=== PATIENT | female | born 1990 | race Caucasian/White ===

== ENCOUNTER 2017-07-20 13:27 | Emergency (ER) | payer MEDICAID, SELFPAY ==
[2017-07-20 13:28] VITALS: BP 136/70; PULSE 101; RESP 16; TEMP 37.2; O2SAT 99; BMI 40.7
--- NOTE | 2017-07-20 14:20 | US_ITS ---
STUDY: FIRST TRIMESTER OBSTETRICAL ULTRASOUND REASON FOR EXAM: Female, 26 years old. . Bleeding. LMP: 05/10/2017 TECHNIQUE: Transvaginal PRIOR ULTRASOUND: None. FINDINGS: There is visualization of a single gestational sac in a normal intrauterine position. There is a visualized yolk sac. There is visualization of a live embryo. The crown-rump length (CRL) measures 2.6, indicating an estimated gestational age (EGA) of 9 weeks, 3 days. There is demonstrated cardiac activity with a heart rate of 170 bpm. There is a 2.3 x 1.9 x 0.7 cm subchorionic hematoma. The uterus measures 11.1 x 6.9 x 5.4. There is no demonstrated uterine fibroid. The cervix is closed. The right ovary measures 2.9 x 2.3 x 1.6. There is no right ovarian cyst. There is no visualized right adnexal mass or complex lesion. The left ovary measures 3.0 x 2.9 x 2.3. There is a 2.0 x 1.9 cm cyst in the left ovary. There is no visualized left adnexal mass or complex lesion. There is no fluid in the cul de sac. US/Transvaginal w/Preg US IMPRESSION: Single live intrauterine gestation at approximately 9 weeks and 3 days. 2.3 x 1.9 x 0.7 cm subchorionic hematoma. Electronically Signed: Vineet Flores, at 16:11 EST Tel , Service support ,
[2017-07-20 14:45] LABS: Color, Urine Yellow (Yellow); Glucose, Dipstick Normal (Normal); Ketone-Dipstick Negative (Negative); Leukocyte Esterase-Dipstick 100 /ul (Negative); Nitrite-Dipstick Negative (Negative); Occult Blood-Urine 25 /ul (Negative); Protein-Dipstick Negative (Negative); Urine Bilirubin Dipstick Negative (Negative); Urine Clarity Clear (Clear); Urine Urobilinogen Normal (Normal)
[2017-07-20 14:54] LABS: Red Blood Cells-Urine 0-5 SEEN /hpf (0-5); Squamous Epithelial Cells - UA 0-5 SEEN /hpf (5-10); White Blood Cells 0-5 SEEN /hpf (0-5)
[2017-07-20 14:55] LABS: Bacteria RARE /hpf (None Seen); Mucous, Urine RARE /hpf (<or=2+)
[2017-07-20 16:11] VITALS: BP 98/69; PULSE 96; O2SAT 98
--- NOTE | 2017-07-20 16:24 | ED.DCSUM_ITS ---
- ER Visit Summary Date of Service: 07/20/17 Chief Complaint: History of Present Illness: The patient is a 26 F who is approximately 9 weeks by dates. This is her first . Today she developed some mild intermittent pelvic cramping. She has had a vaginal bleeding which she describes as spotting. No discharge. No dysuria frequency urgency or hematuria. No fevers. He has not yet had an obstetrics appointment. Physical Examination: Afebrile vitals are unremarkable Heart regular rate and rhythm Lungs are clear Abdomen soft nontender nondistended Alert and oriented Test Results: None dictated hCG 89,000. ABO Rh blood type is B+. Urinalysis shows rare bacteria and was sent for culture. Pelvic ultrasound shows a single live intrauterine at 9 weeks and 3 days. There is a subchorionic hematoma. Emergency Department Course and Treatment: Patient was advised of findings. Her blood type is Rh+. 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 She understands to return for new or worsening symptoms. She was discharged. Treatment Plan: [] Disposition: Discharge Impression: Intrauterine Subchorionic hematoma This note was generated with [employer] dictation software. It may contain incorrect words, spelling, and punctuation that were not noted in review of the chart prior to signing ED Disposition - Plan for ED Patient: Chief Complaint: Vag Bld, Preg Referrals: Roger Porter DO [Primary Care Provider] -
--- NOTE | 2017-07-20 16:27 | DCINST.ED_ITS ---
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
[2017-07-20 16:32] VITALS: RESP 18
== END 2017-07-20 16:33 | disposition home or self-care (01) ==
PROVIDERS: Emergency Provider Emergency Medicine; Family Provider Family Medicine; PCP Family Medicine
DX: O46.8X1 Other antepartum hemorrhage, first trimester (principal); Z3A.09 9 weeks gestation of pregnancy
CPT/HCPCS: 76817; 81001; 84702; 86900; 99282

== ENCOUNTER → 2018-06-21 14:47 | Outpatient (CLI) | payer OTHER, MEDICAID, SELFPAY ==
--- NOTE | 2018-06-21 14:50 | RAD_ITS ---
STUDY: X-RAY - ABDOMEN/PELVIS REASON FOR EXAM: Female, 27 years old. Kidney calculus. TECHNIQUE: 2 views of the abdomen and pelvis COMPARISON: CT dated 06/15/2014. FINDINGS: There are radiodensities in the left upper quadrant which correspond to surgical clips in the pancreas on the CT dated 06/15/2014. There are no urinary calculi identified. There is no bowel obstruction. There is air and stool to the level of the rectum. The visualized osseous structures are within normal limits. RAD/Abdomen Single View IMPRESSION: No bowel obstruction. No urinary calculi identified. If indicated, further evaluation with CT can be performed. Electronically Signed: Vineet Flores, at 16:15 EST Tel , Service support ,
--- OUTSIDE RECORDS SUMMARY | 2018-08-23 20:57 | XMS RPT_ITS ---
:1990 Author Organization OHIP Support Name Relationship Address Phone HO Unavailable [address] + [place] [address] NINO MORRIS Unavailable [address] + [place] [address] SAGRARIO RODRIGUEZ Unavailable [address] + [address] [place] [address] [facility] Unavailable [address] + [place] [address] NINO MORRIS Unavailable [address] + [place] [address] SAGRARIO RODRIGUEZ Unavailable [address] + [address] [place] [address] WENDY RODRIGUEZ Unavailable [address] + [place] [address] NINO MORRIS Unavailable [address] + [place] [address] [facility] Unavailable [address] + [place] [address] Care Team Providers Name Role Phone DISHA LAGOS DO Attending Unavailable MARILYNN HULL CNM Attending Unavailable DR. SHAHID TORRSE DO Attending Unavailable TERE WEST MD Consulting Unavailable DR. SHAHID TORRES DO Admitting Unavailable MARILYNN HULL CNM Attending Unavailable TERE WEST MD Consulting Unavailable MARILYNN HULL CNM Admitting Unavailable MARILYNN HULL CNM Attending Unavailable MARILYNN HULL CNM Admitting Unavailable Adeline Pressley Attending Unavailable Adeline Pressley Referring Unavailable Roger Porter Primary Care Unavailable Adeline Pressley Attending Unavailable Adeline Pressley Referring Unavailable Primay Care Physicia, No Primary Care Unavailable Charlotte, Roger Primary Care Unavailable Humza Chris Attending Unavailable PROBLEMS PROBLEMS DATE TYPE CONDITION / CODE ATTENDING STATUS SOURCE 06/24/2018 Unknown N20.0 - Calculus Adeline Pressley Active [facility] N20.0(ICD-10) Hospital Repository 07/29/2017 Unknown O46.8X1 - Other Humza Chris Active [facility] antepartum Community hemorrhage, first Hospital trimester / Repository O46.8X1(ICD-10) PROCEDURES PROCEDURES No Procedure Records FoundRESULTS RESULTS OPERATIVE REPORT Observed: 06/24/2018 Status: F Source: [place] 10:16 AM [facility] REPOSITORY [facility] Medical Records Department [address] [place] [address] Operative Report 06/24/18 1010 MR#: [id number] Acct: [id number] Name: LARISSA PUTNAM Rep #: [id number] : 1990 27 From: Adeline Pressley MD PCP: Care Physician, No Primary Status: [facility] Location: [place] [address] Problem List (1) Renal calculus, right Status: Acute (2) Pelvic pain Status: Acute Report of Operation Date of Procedure: 06/24/18 Pre-Operative Diagnosis: right renal calculus, pelvic pain Post-Operative Diagnosis: same Surgery/Procedure Performed:: pelvic exam under anesthesia, cystoscopy, right renal extracorporeal shockwave lithotripsy Description of Surgical Findings:: cystoscopy no mass, erythema, ulceration. pelvic exam with decreased support and rectocele, open introitus. stone well fragmented after 2000 shocks. evs attendant: Adeline Pressley Type of Anesthesia:: General Estimated Blood Loss (mL): 2cc Description of Procedure: The patient is a 27-year-old female who was determined to have bilateral renal calculi during a recent . She now presents for definitive treatment of her remaining right renal calculus and further evaluation with pelvic exam and cystoscopy for her pelvic pain. All risks benefits and alternatives were discussed preoperatively and she agreed to proceed. She was taken to the operating room and placed on operating room table. Anesthesia monitored the head, neck, airway, IV access, vital signs throughout the case. Once anesthesia was superbly administered patient was placed into dorsal lithotomy position was prepped and draped in usual sterile fashion. A pelvic examination revealed significant laxity of the posterior pelvic floor with a rectocele present. The introitus is significantly open. A 21 Danish 70 degree scope was inserted through the urethra under direct bili visualization into the urinary bladder. The area of the trigone was anatomically appropriate. The entirety of the bladder mucosa and urethra were visualized and found to be without evidence of mass, erythema, ulceration or foreign body. At this time the scope was removed. The patient was placed into supine position. The stone on her right side was easily identified. It was aligned with a lithotripter and was completely fragmented and a total of 2000 shocks. The patient was then awakened and taken to the recovery room in good condition. There were no immediate complications. - Complications none - Admit VTE Documentation VTE Present on Admission: Yes VTE Mechan Device Prophylaxis: SCD's VTE Pharm Prophylaxis ordered?: No Reason prophylaxis not ordered:: Treatment Not Indicated 06/24/18 1016 <Electronically signed by Adeline Pressley MD> Date Adeline Pressley MD CC: No Primary Care Physician; Adeline Pressley MD Signed DISCHARGE INSTRUCTION Observed: 06/24/2018 Status: F Source: [place] 8:25 AM [facility] Medical Records Department [address] [place] [id number] Instructions for Home/Discharge Instructions 06/24/18 0824 MR#: [id number] Acct: [id number] Name: LARISSA PUTNAM Rep #: [id number] : 1990 27 From: Adeline Pressley MD PCP: Care Physician, No Primary Status: [facility] Dis[place] Diet: No Restrictions Discharge Activity: May not drive while taking narcotic pain medications. Call your doctor if you observe: Fever of 101 or Higher, Inability to urinate, Shortness of breath, Chest pain, Calf discomfort, Uncontrolled pain Allergies/Adverse Reactions: Allergies No Known Allergies Allergy (Verified 06/21/18 16:09) Medications to take at Discharge No Known/Unobtainable [No Known Home Medications] 04/04/13 Primary Care Physician: Care Physician,No Primary [Primary Care Provider] - Test Results: Test results from this visit will be discussed in further detail at your follow-up appointment, if applicable. Please Follow Up With: Adeline Pressley MD When: 3 weeks with KUB Proposed Discharge Date: 06/24/18 06/24/18824 <Electronically signed by Adeline Pressley MD> Date Adeline Pressley MD CC: No Primary Care Physician Signed ,URINE Collected: 06/24/2018 Status: F Source: [place] 8:00 AM [facility] REPOSITORY Order Comment: Reason for Laboratory Test preop TYPE CODE TESTS RESULT OUT OF REFERENCE UNITS RANGE LAB L400.8000 Negative Normal HCGUQUAL Negative Result Comment: Very dilute urine specimens, as indicated by a low specific gravity, may not contain high school admissions representative levels of hCG. If is still suspected, a first morning urine specimen should be collected 48 hours later and tested. Performed By: #### L400.7600 #### [facility] [address] [place], [address] ABDOMEN SINGLE VIEW Observed: 06/21/2018 Status: F Source: [place] 2:50 PM [facility] REPOSITORY [facility] Imaging Services [address] [place] [address] Abdomen Single View MR#: [id number] Acct: [id number] Name: LARISSA PUTNAM Rep #: [id number] : 1990 F 27 From: Vineet Flores MD PCP: Roger Porter DO Status: REG CLI Study: Abdomen Single View Date of Exam: 06/21/18 Exam# [id number] Ordering Dr: Adeline Pressley MD STUDY: X-RAY - ABDOMEN/PELVIS REASON FOR EXAM: Female, 27 years old. Kidney calculus. TECHNIQUE: 2 views of the abdomen and pelvis COMPARISON: CT dated 06/15/2014. FINDINGS: There are radiodensities in the left upper quadrant which correspond to surgical clips in the pancreas on the CT dated 06/15/2014. There are no urinary calculi identified. There is no bowel obstruction. There is air and stool to the level of the rectum. The visualized osseous structures are within normal limits. RAD/Abdomen Single View IMPRESSION: No bowel obstruction. No urinary calculi identified. If indicated, further evaluation with CT can be performed. Electronically Signed: Vineet Flores, at 16:15 EST Tel , Service support , CC: Adeline Pressley MD; Roger Porter DO Auto Polisher: Signed CBC Collected: 02/17/2018 Status: F Source: [facility] 5:50 AM [facility] REPOSITORY TYPE CODE TESTS RESULT OUT OF RANGE REFERENCE UNITS LAB WBC(LOINC) 4.60-10.80 10 3/mcL Abnormal Alert WBC 21.50 LAB RBCCT(LOIN 4.20-5.40 10 6/mcL C) Low RBC 4.06 LAB HGB(LOINC) 12.0-16.0 G/dL Low Hgb 11.5 LAB HCT(LOINC) 37.0-47.0 % Low Hct 33.4 LAB MCV(LOINC) 80.0-94.0 fL MCV 82.3 LAB MCH(LOINC) 27.0-31.2 pg MCH 28.2 LAB MCHC(LOINC 33.0-37.0 G/dL ) MCHC 34.3 LAB RDW(LOINC) 11.5-14.5 % High RDW 14.6 LAB PLT(LOINC) 130-400 10 3/mcL Platelet 257 LAB MPV(LOINC) 7.4-10.4 fL MPV 9.3 Performed By: #### CBC, DIFF, MORPH #### [address] [address] .MANUAL DIFF Collected: 02/17/2018 Status: F Source: [facility] 5:50 AM [facility] REPOSITORY TYPE CODE TESTS RESULT OUT OF REFERENCE UNITS RANGE LAB NEUM(LOINC 37.0-80.0 % ) Neutrophil %, 75.0 Manual LAB LYMM(LOINC 10.0-50.0 % ) Lymphocyte %, 12.0 Manual LAB MONM(LOINC 1.7-13.0 % ) Monocyte %, Manual 2.0 LAB EOM(LOINC) 0.0-7.0 % Eosinophil %, 0.0 Manual LAB BASM(LOINC 0.0-2.5 % ) Basophil %, Manual 0.0 LAB BAND(LOINC 0.0-5.0 % ) Bands High 11.0 LAB ANEUM(LOIN 2.85-6.16 10 3/mcL C) High Neutrophil, Abs 18.50 Manual LAB ABLYMM(STEVE 0.77-3.85 10 3/mcL NC) Lymphocyte, Abs 2.60 Manual LAB AMONM(LOIN 0.15-1.00 10 3/mcL C) Monocyte, Abs 0.40 Manual LAB AEOSM(LOIN 0.00-0.40 10 3/mcL C) Eosinophil, Abs 0.00 Manual LAB ABASM(LOIN 0.00-0.19 10 3/mcL C) Basophil, Abs 0.00 Manual Performed By: #### CBC, DIFF, MORPH #### [address] [address] .MORPH Collected: 02/17/2018 Status: F Source: [facility] 5:50 AM [facility] REPOSITORY TYPE CODE TESTS RESULT OUT OF REFERENCE UNITS RANGE LAB PLTE(LOINC ) Platelet Estimate Normal LAB ANIS(LOINC ) Anisocytosis Slight Performed By: #### CBC, DIFF, MORPH #### [address] [address] CBC Collected: 02/15/2018 Status: F Source: [facility] 8:15 PM [facility] REPOSITORY TYPE CODE TESTS RESULT OUT OF REFERENCE UNITS RANGE LAB WBC(LOINC) 4.60-10.80 10 3/mcL High WBC 11.90 LAB RBCCT(LOINC 4.20-5.40 10 6/mcL ) Low RBC 4.09 LAB HGB(LOINC) 12.0-16.0 G/dL Low Hgb 11.7 LAB HCT(LOINC) 37.0-47.0 % Low Hct 33.6 LAB MCV(LOINC) 80.0-94.0 fL MCV 82.0 LAB MCH(LOINC) 27.0-31.2 pg MCH 28.5 LAB MCHC(LOINC) 33.0-37.0 G/dL MCHC 34.7 LAB RDW(LOINC) 11.5-14.5 % High RDW 14.7 LAB PLT(LOINC) 130-400 10 3/mcL Platelet 242 LAB MPV(LOINC) 7.4-10.4 fL MPV 9.2 Performed By: #### CBC, ADIFF, ANEU, ABOG, ANSG #### [address] [address] .AUTO DIFF Collected: 02/15/2018 Status: F Source: [facility] 8:15 [facility] REPOSITORY TYPE CODE TESTS RESULT OUT OF REFERENCE UNITS RANGE LAB CONSTANTINE(LOINC) 37.0-80.0 % Neutrophil % 73.6 LAB LYM(LOINC) 10.0-50.0 % Lymphocyte % 18.9 LAB MON(LOINC) 1.7-13.0 % Monocyte % 6.1 LAB EO(LOINC) 0.0-7.0 % Eosinophil % 0.9 LAB BAS(LOINC) 0.0-2.5 % Basophil % 0.5 LAB ABLYM(LOIN 0.77-3.85 10 3/mcL C) Lymphocyte, 2.30 Absolute LAB JEN(LOINC 0.15-1.00 10 3/mcL ) Monocyte, 0.70 Absolute LAB AEOS(LOINC 0.00-0.40 10 3/mcL ) Eosinophil, 0.10 Absolute LAB ABAS(LOINC 0.00-0.19 10 3/mcL ) Basophil, 0.10 Absolute Performed By: #### CBC, ADIFF, ANEU, ABOG, ANSG #### [address] [address] .NEUABS Collected: 02/15/2018 Status: F Source: [facility] 8:15 PM [facility] REPOSITORY TYPE CODE TESTS RESULT OUT OF REFERENCE UNITS RANGE LAB ANEU(LOINC) 2.85-6.16 10 3/mcL High Neutrophil, 8.70 Absolute Performed By: #### CBC, ADIFF, ANEU, ABOG, ANSG #### [address] [address] GEL ABO Collected: 02/15/2018 Status: F Source: [facility] 8:15 PM [facility] REPOSITORY TYPE CODE TESTS RESULT OUT OF RANGE REFERENCE UNITS LAB ABORH(LOINC ) Unknown ABO/Rh B POS Interp Performed By: #### CBC, ADIFF, ANEU, ABOG, ANSG #### [address] [address] GEL ABS Collected: 02/15/2018 Status: F Source: [facility] 8:15 PM [facility] REPOSITORY TYPE CODE TESTS RESULT OUT OF REFERENCE UNITS RANGE LAB ANSG(LOINC ) Antibody Negative ABSC Screen Gel Performed By: #### CBC, ADIFF, ANEU, ABOG, ANSG #### [address] [address] ZCALC Collected: 01/17/2018 Status: F Source: [facility] 6:25 PM [facility] REPOSITORY TYPE CODE TESTS RESULT OUT OF REFERENCE UNITS RANGE LAB UCONS(LOIN C) Calculi constituents See Below Result Comment: The calculus has been analyzed and found to contain the following substances: CALCIUM OXALATE MAGNESIUM PRESENT Performed By: #### ZCALC #### [place] [address] FINAL SURGICAL Observed: 01/17/2018 Status: F Source: [facility] PATHOLOGY REPORT 6:09 PM [facility] REPOSITORY . Pathology Reports Accession: Collected Date/Time: Received Date/Time: Pathologist: [id number] 01/17/2018 18:09 EDT 01/18/2018 14:23 EDT MD DESI MOSQUEDA Final Surgical Pathology Report DIAGNOSIS: _URINARY CALCULUS. CALCULUS IDENTIFIED (GROSS ONLY). COMMENT: [facility]# [id number] CLINICAL INFORMATION: Procedure: LEFT URETEROSCOPY WITH BASKET EXTRACTION OF KIDNEY STONE Preoperative diagnosis: KIDNEY STONE Postoperative diagnosis: SAME SPECIMEN: A CALCULI - LEFT KIDNEY STONE GROSS DESCRIPTION: Received in saline labeled left kidney stone is a 0.4 cm hard yellow calculus which is entirely submitted for chemical analysis. Dictated by Omaira CHAVEZ ([facility]) MICROSCOPIC DESCRIPTION: NONE Electronically Signed by Pathology Report verified by [facility] Electronically signed by DESI MOSQUEDA MD Sign out Date: 01/19/2018 09:07 Performing Lab: [facility], [address] [place] [address] Performed By: #### SPFR #### [place] [address] UA Collected: 01/17/2018 Status: F Source: [facility] 10:48 AM [facility] REPOSITORY TYPE CODE TESTS RESULT OUT OF RANGE REFERENCE UNITS LAB SPCUA(STEVE NC) UA Specimen Type Clean Catch LAB CLRUA(STEVE NC) UA Color Yellow LAB APPUA(STEVE Clear NC) UA Appear Unknown Cloudy LAB SGUA(LOIN C) UA Spec Unknown Grav 1.005 LAB GLUA(LOIN Negative mg/dL C) UA Glucose Negative LAB BILUA(STEVE Negative NC) UA Bili Negative LAB KETUA(STEVE Negative mg/dL NC) UA Ketones Unknown 80 LAB BLDUA(STEVE Negative NC) UA Blood Unknown Trace-Intact LAB PHUA(LOIN C) UA pH 6.5 LAB PROUA(STEVE Negative mg/dL NC) UA Protein Negative LAB UROUA(STEVE E.U./dL NC) UA Urobilinogen 0.2 LAB NITUA(STEVE Negative NC) UA Nitrite Negative LAB LEUUA(STEVE Negative NC) UA Leuk Est Unknown Moderate Performed By: #### UA, UAMICAO #### [place] [address] .URINALYSIS MICROSCOPIC Collected: 01/17/2018 Status: F Source: [place] ([facility]) 10:48 AM [facility] REPOSITORY TYPE CODE TESTS RESULT OUT OF RANGE REFERENCE UNITS LAB WBCUA(LOIN None Seen /hpf C) Unknown UA WBC 0-5 LAB RBCUA(LOIN None Seen /hpf C) Unknown UA RBC 5-10 LAB EPIUA(LOIN None Seen /hpf C) Unknown UA Squam Epithelial 5-10 LAB BACUA(LOIN /hpf C) Unknown UA Bacteria 4+ Performed By: #### UA, UAMICAO #### [place] [id number] US RENAL Observed: 01/17/2018 Status: F Source: [facility] 10:06 AM [facility] REPOS[facility] ORIGINAL US RENAL CLINICAL INDICATION: continued pain; evaluate stone size. 3rd trimester. COMPARISON: CT abdomen/pelvis 01/15/2018. Renal ultrasound 01/14/2018 and 01/11/2018. FINDINGS: KIDNEYS: RIGHT: 12.2 x 6.1 x 6.5 cm Cortext: Unremarkable 1 cm calculus. No hydronephrosis, perirenal fluid, or discrete cortical mass. LEFT: 11.3 x 6.9 x 5.8 cm Cortext: Unremarkable 0.7 cm calculus. No hydronephrosis, perirenal fluid, or discrete cortical mass. Urinary bladder is empty. IMPRESSION: Bilateral nephrolithiasis. Hydronephrosis resolved. I have personally reviewed the images of this examination and agree with the resident's findings and interpretation. Interpreted By: Estella Plunkett MD Preliminary Report By: Yanni Shah DO Electronically Signed By: Estella Plunkett MD Dictated Date: 01/17/2018 10:13:46 AM Prelim Date: 01/17/2018 10:50:09 AM Sign Date: 01/17/2018 11:20:[address] ABDOMEN/PELVIS W/O Observed: 01/15/2018 Status: F Source: [facility] 10:39 AM [facility] REPOSITORY ORIGINAL CT abdomen and pelvis without contrast, stone protocol CLINICAL STATEMENT: renal lithiasis, uncontrollable pain, left-sided pain COMPARISON: 01/07/2013 and other prior This exam was performed according to our departmental dose- optimization program which includes automated exposure control, adjustment of the mA and/or kVp according to patient size and/or use of iterati ve reconstruction technique where applicable. Findings: A 6 mm stone is seen in the inferior pole of the RIGHT kidney. There is a tiny 1 to 2 mm punctate stone in the inferior pole of the LEFT kidney. There is a 5 mm calcification in the LEFT side pelvis in the region of the LEFT UVJ, which was not seen in the prior CT study, likely representing a urinary stone. Mild hydroureteronephrosis is seen. Mild dilatation of the RIGHT upper urinary tract is also noted, but this could be due to the gravid uterus. Within the limits of a noncontrast CT, other viscera show no gross acute abnormalities. No free fluid collection is seen. The appendix is normal. There is a gravid uterus with the fetus in cephalic presentation. IMPRESSION: Probable 5 mm LEFT UVJ stone with mild hydroureteronephrosis, as described above. Nonobstructing bilateral nephrolithiasis. Interpreted By: Martin Ronquillo DO Preliminary Report By: Martin Ronquillo DO Electronically Signed By: Martin Ronquillo DO Dictated Date: 01/15/2018 10:52:26 AM Prelim Date: 01/15/2018 10:52:26 AM Sign Date: 01/15/2018 11:04:04 AM ABO/RH RETYPE GEL Collected: 01/14/2018 Status: F Source: [employer] 2:07 PM [facility] REPOSITORY Order Comment: Ordered by Discern TYPE CODE TESTS RESULT OUT OF RANGE REFERENCE UNITS LAB [id number](LOINC) Unknown ABO/Rh B POS Retype Gel Performed By: #### ABORG #### [address] [address] CBC Collected: 01/14/2018 Status: F Source: [facility] 11:54 AM [facility] REPOSITORY TYPE CODE TESTS RESULT OUT OF REFERENCE UNITS RANGE LAB WBC(LOINC) 4.60-10.80 10 3/mcL WBC 10.20 LAB RBCCT(LOINC 4.20-5.40 10 6/mcL ) Low RBC 3.92 LAB HGB(LOINC) 12.0-16.0 G/dL Low Hgb 11.4 LAB HCT(LOINC) 37.0-47.0 % Low Hct 32.9 LAB MCV(LOINC) 80.0-94.0 fL MCV 83.8 LAB MCH(LOINC) 27.0-31.2 pg MCH 29.1 LAB MCHC(LOINC) 33.0-37.0 G/dL MCHC 34.7 LAB RDW(LOINC) 11.5-14.5 % RDW 13.3 LAB PLT(LOINC) 130-400 10 3/mcL Platelet 236 LAB MPV(LOINC) 7.4-10.4 fL MPV 9.0 Performed By: #### CBC, ADIFF, ANEU, ABOG, ANSG #### [address] [address] .AUTO DIFF Collected: 01/14/2018 Status: F Source: [facility] 11:54 AM [facility] REPOSITORY TYPE CODE TESTS RESULT OUT OF REFERENCE UNITS RANGE LAB CONSTANTINE(LOINC) 37.0-80.0 % Neutrophil % 75.8 LAB LYM(LOINC) 10.0-50.0 % Lymphocyte % 16.0 LAB MON(LOINC) 1.7-13.0 % Monocyte % 6.3 LAB EO(LOINC) 0.0-7.0 % Eosinophil % 1.0 LAB BAS(LOINC) 0.0-2.5 % Basophil % 0.9 LAB ABLYM(LOIN 0.77-3.85 10 3/mcL C) Lymphocyte, 1.60 Absolute LAB JEN(LOINC 0.15-1.00 10 3/mcL ) Monocyte, 0.60 Absolute LAB AEOS(LOINC 0.00-0.40 10 3/mcL ) Eosinophil, 0.10 Absolute LAB ABAS(LOINC 0.00-0.19 10 3/mcL ) Basophil, 0.10 Absolute Performed By: #### CBC, ADIFF, ANEU, ABOG, ANSG #### [address] [address] .NEUABS Collected: 01/14/2018 Status: F Source: [facility] 11:54 AM [facility] REPOSITORY TYPE CODE TESTS RESULT OUT OF REFERENCE UNITS RANGE LAB ANEU(LOINC) 2.85-6.16 10 3/mcL High Neutrophil, 7.70 Absolute Performed By: #### CBC, ADIFF, ANEU, ABOG, ANSG #### [address] [address] GEL ABO Collected: 01/14/2018 Status: F Source: [facility] 11:54 AM [facility] REPOSITORY TYPE CODE TESTS RESULT OUT OF RANGE REFERENCE UNITS LAB ABORH(LOINC ) Unknown ABO/Rh B POS Interp Performed By: #### CBC, ADIFF, ANEU, ABOG, ANSG #### [address] [address] GEL ABS Collected: 01/14/2018 Status: F Source: [facility] 11:54 AM [facility] REPOSITORY TYPE CODE TESTS RESULT OUT OF REFERENCE UNITS RANGE LAB ANSG(LOINC ) Antibody Negative ABSC Screen Gel Performed By: #### CBC, ADIFF, ANEU, ABOG, ANSG #### [facility] [address] [place], [place] [address] US RENAL Observed: 01/14/2018 Status: F Source: [facility] 10:32 AM [facility] REPOSITORY ORIGINAL US RENAL CLINICAL INDICATION: kidney stone. 3rd trimester . COMPARISON: 01/11/2018 demonstrated bilateral nephrolithiasis with mild LEFT pelvocaliectasis. FINDINGS: KIDNEYS: RIGHT: 11.9 x 5.7 x 4.9 cm Cortext: Unremarkable RIGHT renal calculus measuring approximately 1 cm is unchanged. No hydronephrosis or discrete cortical mass. LEFT: 11.9 x 5.7 x 4.7 cm Cortext: Unremarkable Mild pelvocaliectasis is stable to mildly improved. No shadowing stone, or discrete cortical mass. Urinary bladder is unremarkable. Partially visualized is the live gestation. IMPRESSION: 1. RIGHT nephrolithiasis. LEFT renal calculus no longer visualized. 2. Stable to minimally improved, mild LEFT pelvocaliectasis. I have personally reviewed the images of this examination and agree with the resident's findings and interpretation. Interpreted By: Warner Bartlett MD Preliminary Report By: Yanni Shah DO Electronically Signed By: Warner Bartlett MD Dictated Date: 01/14/2018 11:36:37 AM Prelim Date: 01/14/2018 11:48:40 AM Sign Date: 01/14/2018 11:49:17 AM BMP Collected: 01/12/2018 Status: F Source: [employer] 7:44 AM [facility] REPOSITORY TYPE CODE TESTS RESULT OUT OF REFERENCE UNITS RANGE LAB GLU(LOINC) 70-105 mg/dL Glucose High Level 110 LAB NA(LOINC) 136-145 mmol/L Sodium Level 136 LAB K(LOINC) 3.5-5.1 mmol/L Potassium Level 4.1 LAB CL(LOINC) 98-107 mmol/L Chloride 101 LAB CO2(LOINC) 22-29 mmol/L Low CO2 21 LAB EBAL(LOINC mEq/L ) Electrolyte Balance 14.0 LAB BUN(LOINC) 7-18 mg/dL BUN 9 LAB CRE(LOINC) 0.55-1.02 mg/dL Creatinine Lvl (s) 0.73 LAB BC(LOINC) 7-27 ratio BUN/Creatinine 12 Ratio LAB CA(LOINC) 8.4-10.2 mg/dL Calcium Lvl 9.0 Performed By: #### BMP, GFR #### [address] [address] .GFR Collected: 01/12/2018 Status: F Source: [employer] 7:44 AM [facility] REPOSIT[facility] TYPE CODE TESTS RESULT OUT OF REFERENCE UNITS RANGE LAB GFRAA(LOINC ml/min/1.73 ) sqm GFR 116 [place] Result Comment: GFR Population mean for , Non- Americans Ages 20-29 = 116 mL/min/1.73 sq.m. Ages 30-39 = 107 mL/min/1.73 sq.m. Ages 40-49 = 99 mL/min/1.73 sq.m. Ages 50-59 = 93 mL/min/1.73 sq.m. Ages 60-69 = 85 mL/min/1.73 sq.m. Ages 70+ = 75 mL/min/1.73 sq.m. Chronic Kidney Disease: Less than 60 mL/min/1.73 square meters End Stage Renal Disease: Less than 15 mL/min/1.73 square meters LAB GFRNO(LOINC) ml/min/1.73sqm GFR Non- 96 Result Comment: GFR Population mean for , Non- Americans Ages 20-29 = 116 mL/min/1.73 sq.m. Ages 30-39 = 107 mL/min/1.73 sq.m. Ages 40-49 = 99 mL/min/1.73 sq.m. Ages 50-59 = 93 mL/min/1.73 sq.m. Ages 60-69 = 85 mL/min/1.73 sq.m. Ages 70+ = 75 mL/min/1.73 sq.m. Chronic Kidney Disease: Less than 60 mL/min/1.73 square meters End Stage Renal Disease: Less than 15 mL/min/1.73 square meters Performed By: #### BMP, GFR #### [place] [address] US RENAL Observed: 01/11/2018 Status: F Source: [employer] 5:57 PM [facility] REPOSIT[facility] ORIGINAL US RENAL (US RETROPERITONEUM COMPLETE) CLINICAL STATEMENT: LEFT flank pain. The patient is 35 weeks . COMPARISON: CT abdomen and pelvis 01/07/2013 FINDINGS: The RIGHT and LEFT kidneys measure 12.6 x 5.4 x 4.6 cm and 13.2 x 6.1 x 6.0 cm, respectively. Renal cortical echogenicity and thickness is within normal limits, there is no focal renal mass. Linear echo genic foci are seen within both kidneys with associated posterior acoustic shadowing. These measure up to 1 cm on the LEFT and 0.9 cm on the RIGHT. There is mild LEFT pelvocaliectasis. No perinephric fl uid collection. On the comparison CT images the kidneys appeared normal and there were no calculi previously. The bladder is empty and therefore not adequately assessed. Per technologist notes, heart rate was within normal limits at 150 bpm. IMPRESSION: Bilateral nephrolithiasis with mild LEFT pelvocaliectasis. The bladder is not assessed given underdistention. heart rate within normal limits at 150 bpm. I have personally reviewed the images of this examination and agree with the resident's findings and interpretation Interpreted By: Alfonso Price MD Preliminary Report By: Bairon Stanley MD Electronically Signed By: Alfonso Price MD Dictated Date: 01/11/2018 6:08:46 PM Prelim Date: 01/11/2018 6:12:20 PM Sign Date: 01/11/2018 6:34:29 PM UA Collected: 01/10/2018 Status: F Source: [facility] 11:09 AM [facility] REPOSITORY TYPE CODE TESTS RESULT OUT OF RANGE REFERENCE UNITS LAB SPCUA(STEVE NC) UA Specimen Type Clean Catch LAB CLRUA(STEVE NC) UA Color Yellow LAB APPUA(STEVE Clear NC) UA Appear Unknown Slightly Cloudy LAB SGUA(LOIN C) UA Spec Grav 1.025 LAB GLUA(LOIN Negative mg/dL C) UA Glucose Negative LAB BILUA(STEVE Negative NC) UA Bili Negative LAB KETUA(STEVE Negative mg/dL NC) UA Ketones Negative LAB BLDUA(STEVE Negative NC) UA Blood Unknown Large LAB PHUA(LOIN C) UA pH 6.0 LAB PROUA(STEVE Negative mg/dL NC) UA Protein Negative LAB UROUA(STEVE E.U./dL NC) UA Urobilinogen 0.2 LAB NITUA(STEVE Negative NC) UA Nitrite Negative LAB LEUUA(STEVE Negative NC) UA Leuk Est Unknown Trace Performed By: #### UA, UAMICAO #### [facility] [address] [place], [place] [address] .URINALYSIS MICROSCOPIC Collected: 01/10/2018 Status: F Source: [place]) 11:09 AM [facility] REPOSITORY TYPE CODE TESTS RESULT OUT OF RANGE REFERENCE UNITS LAB WBCUA(LOIN None Seen /hpf C) Unknown UA WBC 0-5 LAB RBCUA(LOIN None Seen /hpf C) Unknown UA RBC LOADED LAB EPIUA(LOIN None Seen /hpf C) Unknown UA Squam Epithelial LOADED LAB BACUA(LOIN /hpf C) Unknown UA Bacteria 3+ Performed By: #### UA, UAMICAO #### [facility] [address] [place], [place] [address] DISCHARGE INSTRUCTION Observed: 07/20/2017 Status: F Source: [place] 4:27 PM [facility] REPOSITORY [facility] Medical Records Department [address] [place] [address] Discharge Instruction 07/20/17 1625 MR#: [id number] Acct: [id number] Name: LARISSA PUTNAM Rep #: [id number] : 1990 26 From: Humza Chris MD PCP: Roger Porter DO Status: REG ER ED Disposition - Plan for ED Patient: Chief Complaint: Vag Bld, Preg Instructions: ED Preg Established Normal Sxs, ED Miscarriage Poss Referrals: Roger Porter DO [Primary Care Provider] - Additional Instructions: Follow up with your RUBBING BED OPERATOR ARIANNE. What to do if you have Problems For any increased pain, shortness of breath, bleeding, nausea or vomiting, chest pain, or any unexpected problems, contact your Primary Care Provider. Call [facility] ([phone]) or report to the closest Emergency Room. Call 911 if necessary. 07/20/17 4663 <Electronically signed by Humza Chris MD> Date Humza Chris MD Cosigner Signature (If Indicated): Date CC: Roger Porter DO EMERGENCY DEPARTMENT Observed: 07/20/2017 Status: F Source: [place] SUMMARY 4:24 PM [facility] REPOSITORY [facility] Medical Records Department [address] [place] [address] Emergency Department Summary 07/20/17 1622 MR#: [id number] Acct: [id number] Name: LARISSA PUTNAM Rep #: [id number] : 1990 26 From: Humza Chris MD PCP: Roger Porter DO Status: REG ER - ER Visit Summary Date of Service: 07/20/17 Chief Complaint: History of Present Illness: The patient is a 26 F who is approximately 9 weeks by dates. This is her first . Today she developed some mild intermittent pelvic cramping. She has had a vaginal bleeding which she describes as spotting. No discharge. No dysuria frequency urgency or hematuria. No fevers. He has not yet had an obstetrics appointment. Physical Examination: Afebrile vitals are unremarkable Heart regular rate and rhythm Lungs are clear Abdomen soft nontender nondistended Alert and oriented Test Results: None dictated hCG 89,000. ABO Rh blood type is B+. Urinalysis shows rare bacteria and was sent for culture. Pelvic ultrasound shows a single live intrauterine at 9 weeks and 3 days. There is a subchorionic hematoma. Emergency Department Course and Treatment: Patient was advised of findings. Her blood type is Rh+. 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 She understands to return for new or worsening symptoms. She was discharged. Treatment Plan: [] Disposition: Discharge Impression: Intrauterine Subchorionic hematoma This note was generated with [employer] software. It may contain incorrect words, spelling, and punctuation that were not noted in review of the chart prior to signing ED Disposition - Plan for ED Patient: Chief Complaint: Vag Bld, Preg Referrals: Roger Porter DO [Primary Care Provider] - What to do if you have Problems For any increased pain, shortness of breath, bleeding, nausea or vomiting, chest pain, or any unexpected problems, contact your Primary Care Provider. Call [employer] Registry ([phone]) or report to the closest Emergency Room. Call 911 if necessary. 07/20/17 0134 <Electronically signed by Humza Chris MD> Date Humza Chris MD Cosigner Signature (If Indicated): Date CC: Roger Porter DO URINALYSIS, COMPLETE Collected: 07/20/2017 Status: F Source: [place] 2:25 PM [facility] REPOSITORY Order Comment: Order Date: 07/20/17 How was Urine Obtained? CLEAN CATCH TYPE CODE TESTS RESULT OUT OF RANGE REFERENCE UNITS LAB L400.3000 Yellow COLOR Normal Yellow LAB L400.3050 Clear Normal CLARITY Clear LAB L400.3200 Normal mg/dl Normal GLUCOSE, UR Normal LAB L400.3300 Negative mg/dL Normal BILIRUBIN URINE Negative LAB L400.3400 Negative mg/dl Normal KETONE UR Negative LAB L400.3465 1.002-1.030 Normal SP.GR. DIPSTX 1.010 LAB L400.3550 5.0 - 8.0 pH UR Normal 6.0 LAB L400.3600 Negative mg/dl PROT Normal DIPSTX Negative LAB L400.3700 Normal mg/dl Normal UROBILI Normal LAB L400.3750 Negative Normal NITRITE UR Negative LAB L400.3780 Negative /ul High 25 OCCULT BLOOD-UR LAB L400.3800 Negative /ul High LEUK ESTERASE 100 LAB L400.4050 0-5 /hpf WBC Normal 0-5 SEEN LAB L400.4100 0-5 /hpf Normal RBC-UA 0-5 SEEN LAB L400.4150 5-10 /hpf SQUAM Normal EPI 0-5 SEEN LAB L400.4300 None Seen /hpf Normal BACTERIA RARE LAB L400.4350 <or=2+ /hpf Normal MUCUS, URINE RARE Performed By: #### L400.0001 #### [facility] [address] [place], [address] HCG TITER QUANT., Collected: 07/20/2017 Status: F Source: [place] 2:25 PM [facility] REPOSITORY TYPE CODE TESTS RESULT OUT OF RANGE REFERENCE UNITS LAB L700.8000 <9 non-preg mIU/mL High HCG 52[address] QUANT. Performed By: #### L700.8000 #### [facility] [address] [place], [address] ABO RH BLOOD TYPE, Collected: 07/20/2017 Status: F Source: [place] PATIENT 2:25 PM [facility] REPOSITORY TYPE CODE TESTS RESULT OUT OF RANGE REFERENCE UNITS LAB B10.0800 B Normal BLOOD POSITIVE TYPE GEL Performed By: #### B10.0010 #### [facility] [address] [place], [address] TRANSVAGINAL W/PREG US Observed: 07/20/2017 Status: F Source: [place] 2:21 PM [facility] REPOSITORY [facility] Imaging Services [address] [place] [address] Transvaginal w/Preg US MR#: [id number] Acct: [id number] Name: LARISSA PUTNAM Rep #: [id number] : 1990 F 26 From: Vineet Flores MD PCP: Roger Porter DO Status: REG HUNG Study: Transvaginal w/Preg US Date of Exam: 07/20/17 Exam# [id number] Ordering Dr: Humza Chris MD STUDY: FIRST TRIMESTER OBSTETRICAL ULTRASOUND REASON FOR EXAM: Female, 26 years old. . Bleeding. LMP: 05/10/2017 TECHNIQUE: Transvaginal PRIOR ULTRASOUND: None. FINDINGS: There is visualization of a single gestational sac in a normal intrauterine position. There is a visualized yolk sac. There is visualization of a live embryo. The crown-rump length (CRL) measures 2.6, indicating an estimated gestational age (EGA) of 9 weeks, 3 days. There is demonstrated cardiac activity with a heart rate of 170 bpm. There is a 2.3 x 1.9 x 0.7 cm subchorionic hematoma. The uterus measures 11.1 x 6.9 x 5.4. There is no demonstrated uterine fibroid. The cervix is closed. The right ovary measures 2.9 x 2.3 x 1.6. There is no right ovarian cyst. There is no visualized right adnexal mass or complex lesion. The left ovary measures 3.0 x 2.9 x 2.3. There is a 2.0 x 1.9 cm cyst in the left ovary. There is no visualized left adnexal mass or complex lesion. There is no fluid in the cul de sac. US/Transvaginal w/Preg US IMPRESSION: Single live intrauterine gestation at approximately 9 weeks and 3 days. 2.3 x 1.9 x 0.7 cm subchorionic hematoma. Electronically Signed: Vineet Sandra, at 16:11 EST Tel , Service support , CC: Humza Chris MD; Roger Porter DO Auto Polisher: Signed ALLERGIES ALLERGIES DATE TYPE / CODE NAME / CODE REACTION SEVERITY SOURCE 06/21/2018 Drug No Known Unknown [facility] Allergy/4160 Allergies/F00 Hospital 72037(SNOMED 7793756(RXNOR Repository CT) M) ENCOUNTERS ENCOUNTERS ADMIT/DISCHARGE ACCOUNT NUMBER ADMITTING ENCOUNTER LOCATION SOURCE CLASS 06/24/2018/06/24/19 [id number] Ambulatory [address] ding:SDCRoom Repository : AC20 06/21/2018 [id number] Ambulatory [facility] ding:MTRAD Repository 02/15/2018/02/19/20 [id number] [facility] Inpatient BBuilding:OB [facility] [address] Encounter URoom: Health L. 0215Bed: A [facility] Repository 01/14/2018/01/19/20 [id number] [place] Ambulatory BBuilding:OB [facility] GUSTAFSONM, RICHELE URoom: Health L. 0211Bed: A [facility] Repository 01/11/2018/01/14/20 [id number] SHEROCK DO, Ambulatory BBuilding:OB [facility] [address] URoom: Health E. 0211Bed: A [facility] Repository 01/10/2018/01/11/20 [id number] Ambulatory BBuilding:OB [facility] URoom: Health 0213Bed: A [facility] Repository 10/04/2017/10/05/19 [id number] Ambulatory [place] [facility] ding:RAD Foundation Repository 07/20/2017/07/20/19 [id number] Emergency [place] [facility] ding:ED Repository PAYERS PAYERS ENCOUNTER GUARANTOR PAYER SUBSCRIBER SOURCE 06/24/2018 LARISSA T Primary LARISSA T [place] [id number] Insurance:CIGNAPolicy CLINEDOB: [facility] RDAPT Number: [id number] [id number] Repository [address]Jin: (330) Date:3026-87-01[phone] () [place], [place] [address]HI: 06/24/2018 Secondary NOT GIVENUNK [place] Insurance:SELF PAY [facility] Number: Effective Repository Date:2018-06-21 06/21/2018 LARISSA T Primary LARISSA T [place] [id number] Insurance:CIGNAPolicy CLINEDOB: [facility] RDAPT Number: [id number] [id number] Repository [address]Byk: (330) Date:9811-94-02VV [phone] () [id number], [place] [address]CI: 06/21/2018 Secondary NOT GIVENUNK [place] Insurance:SELF PAY [facility] Number: Effective Repository Date:2018-06-21 02/15/2018 LARISSA T Primary [facility] CLINEDOB: Insurance:CARESOURCE CLINEDOB: Foundation MEDICAIDPolicy [id number] Rep[address] Number: [address] [id number] [address], [place] [address]Nrh: (330) Date:2018-02-1575630Lkg: (HP) [id number] Name:[address] (HP)Tel: (000) [address], [place] 000[address] (WP) [phone]: 01/14/2018 [facility] CLINEDOB: Insurance:CARESOURCE CLINEDOB: [facility] MEDICAIDPolicy [id number] [address] Number: [address] [id number] [address], [place] [address]Qfe: (330) Date:2018-01-1413220Qak: (HP) [id number] [phone] Name:[address] (HP)Tel: (000) [address], [place] 000[address] (WP) [phone]: 01/11/2018 [facility] CLINEDOB: Insurance:CARESOURCE CLINEDOB: [facility] MEDICAIDPolicy [id number] Rep[address] Number: [address] [id number] [address], [place] [address]Vkn: (330) Date:2018-01-1127444Mfl: (HP) [id number] Name:[address] (HP)Tel: (000) [address], [place] 000[address] (WP) [phone]: 01/10/2018 [facility] CLINEDOB: Insurance:CARESOURCE CLINEDOB: [facility] [id number] [address] Number: [address] [facility] [place] [id number] [address], [place] [address]Kau: (330) Date:2018-01-10 527[address]Ecr: (HP) [id number] [phone] Name:[address] (HP)Tel: (000) [address], [place] [address] (WP) [phone]: 10/04/2017 [facility] CLINEDOB: Insurance:CARESOURCE CLINEDOB: [facility] MEDICAIDPolicy [id number] [address] Number: [address] [facility] [place] [id number] [facility], [place] [address]Xgg: (330) Date:2017-09-29 [address]Egb: (HP) [id number] [phone] Name:[address] (HP)Tel: (000) [address], [place] [address] (WP) [address]UO: 07/20/2017 LARISSA Primary LARISSA [place] [id number] Insurance:[employer] CLINEDOB: Community VERENA DRUNIT y Number: [id number] [id number] Repository [address]Von: (330) Date:3095-24-45LT [phone] () [address] [place] [address]MM: 07/20/2017 Secondary NOT GIVENUNK [place] Insurance:SELF PAY [facility] Number: Effective Repository Date:2017-07-20
== END ==
PROVIDERS: Family Provider Family Medicine; PCP Family Medicine; Referring Provider Urology; Visit Provider Urology
DX: N20.0 Calculus of kidney (principal)
CPT/HCPCS: 74018

== ENCOUNTER 2018-06-24 07:32 | Day surgery (SDC) | payer OTHER, MEDICAID, SELFPAY ==
[2018-06-24] VITALS (7 sets, daily range): BP systolic 101–121; BP diastolic 66–76; PULSE 75–98; RESP 16; TEMP 36.3–36.7; O2SAT 99–100; BMI 39.5
[2018-06-24 08:13] LABS: Internal QC Validated? YES +Cl - CLEAR BKGD; Pregnancy, Urine Negative Negative
--- NOTE | 2018-06-24 08:25 | DCINST_ITS ---
Discharge Diet: No Restrictions Discharge Activity: May not drive while taking narcotic pain medications. Call your doctor if you observe: Fever of 101 or Higher, Inability to urinate, Shortness of breath, Chest pain, Calf discomfort, Uncontrolled pain Allergies/Adverse Reactions: Allergies No Known Allergies Allergy (Verified 06/21/18 16:09) Medications to take at Discharge No Known/Unobtainable [No Known Home Medications] 04/04/13 Primary Care Physician: Care Physician,No Primary [Primary Care Provider] - Test Results: Test results from this visit will be discussed in further detail at your follow- up appointment, if applicable. Please Follow Up With: Adeline Pressley MD When: 3 weeks with LUZ MARINA Proposed Discharge Date: 06/24/18
[2018-06-24] MEDS: Cefazolin 2 GM in 0.9% Normal Saline 100 ML IV (09:34)
--- NOTE | 2018-06-24 10:15 | OP.PCM_ITS ---
Problem List (1) Renal calculus, right Status: Acute (2) Pelvic pain Status: Acute Report of Operation Date of Procedure: 06/24/18 Pre-Operative Diagnosis: right renal calculus, pelvic pain Post-Operative Diagnosis: same Surgery/Procedure Performed:: pelvic exam under anesthesia, cystoscopy, right renal extracorporeal shockwave lithotripsy Description of Surgical Findings:: cystoscopy no mass, erythema, ulceration. pelvic exam with decreased support and rectocele, open introitus. stone well fragmented after 2000 shocks. automatic seamer: Adeline Pressley Type of Anesthesia:: General Estimated Blood Loss (mL): 2cc Description of Procedure: The patient is a 27-year-old female who was determined to have bilateral renal calculi during a recent . She now presents for definitive treatment of her remaining right renal calculus and further evaluation with pelvic exam and cystoscopy for her pelvic pain. All risks benefits and alternatives were discussed preoperatively and she agreed to proceed. She was taken to the operating room and placed on operating room table. Anesthesia monitored the head, neck, airway, IV access, vital signs throughout the case. Once anesthesia was superbly administered patient was placed into dorsal lithotomy position was prepped and draped in usual sterile fashion. A pelvic examination revealed significant laxity of the posterior pelvic floor with a rectocele present. The introitus is significantly open. A 21 [place] 70 degree scope was inserted through the urethra under direct bili visualization into the urinary bladder. The area of the trigone was anatomically appropriate. The entirety of the bladder mucosa and urethra were visualized and found to be without evidence of mass, erythema, ulceration or foreign body. At this time the scope was removed. The patient was placed into supine position. The stone on her right side was easily identified. It was aligned with a lithotripter and was completely fragmented and a total of 2000 shocks. The patient was then awakened and taken to the recovery room in good condition. There were no immediate complications. - Complications none - Admit VTE Documentation VTE Present on Admission: Yes VTE Mechan Device Prophylaxis: SCD's VTE Pharm Prophylaxis ordered?: No Reason prophylaxis not ordered:: Treatment Not Indicated
[2018-06-24] MEDS: HYDROcodone Bitartrate/Apap 5/325 Tablet PO (11:55)
== END 2018-06-24 12:58 | disposition home or self-care (01) ==
LOC: SDC 07:33 → AC 07:34
PROVIDERS: Anesthesiology; Referring Provider Urology; Visit Provider Urology
PROC: (CPT 50590; principal; 2018-06-24 09:10)
DX: N20.0 Calculus of kidney (principal); R10.2 Pelvic and perineal pain; N81.6 Rectocele; Z85.07 Personal history of malignant neoplasm of pancreas; M54.5 Low back pain; N39.41 Urge incontinence; R35.0 Frequency of micturition
CPT/HCPCS: 00873; 52000; 81025; J7120; J2405

== ENCOUNTER → 2018-07-06 11:41 | Outpatient (CLI) | payer OTHER, MEDICAID, SELFPAY ==
[2018-06-24 08:34] VITALS: BMI 39.5
--- NOTE | 2018-07-06 11:46 | RAD_ITS ---
STUDY: X-RAY - ABDOMEN/PELVIS REASON FOR EXAM: Female, 27 years old. Bilateral lower abdominal pain worse on the left side. History of renal stones. TECHNIQUE: Single AP view of the abdomen / pelvis. COMPARISON: 06/21/2018. FINDINGS: Small metallic densities/surgical clips are again seen in the left upper quadrant. There is a moderate amount of colonic fecal material. No abnormal calcifications are identified. The visualized liver, spleen and kidneys are grossly normal in size. Normal soft tissue structures. Normal visualized osseous structures. RAD/Abdomen Single View IMPRESSION: No abnormal calcifications are identified. Electronically Signed: Quan Montoya MD at 11:15 EST Tel , Service support ,
== END ==
PROVIDERS: Referring Provider Urology; Visit Provider Urology
DX: N20.0 Calculus of kidney (principal)
CPT/HCPCS: 74018

== ENCOUNTER → 2018-07-07 10:37 | Outpatient (CLI) | payer OTHER, MEDICAID, SELFPAY ==
[2018-06-24 08:34] VITALS: BMI 39.5
--- NOTE | 2018-07-07 10:41 | CT_ITS ---
STUDY: CT ABDOMEN AND PELVIS WITH AND WITHOUT CONTRAST REASON FOR EXAM: Female, 27 years old. Bilateral flank pain. History of lithotripsy 2 weeks ago. RADIATION DOSAGE (If Supplied By Facility): CTDIvol = ( 23.77 ) mGy, DLP = ( 3971.23 ) mGycm TECHNIQUE: Transaxial images were obtained from the dome of the diaphragm to the symphysis pubis without oral contrast. 100 ml of Isovue 300 contrast was administered. Sagittal and coronal images were reconstructed. Individualized dose optimization techniques were used for this CT. COMPARISON: 06/15/2014. FINDINGS: The visualized lung bases are unremarkable. The visualized portions of the heart are within normal limits. Normal liver. Normal gallbladder and extrahepatic biliary system. Normal spleen. There are surgical clips near the tail of the pancreas consistent with partial resection of the pancreas. Normal bilateral adrenal glands. Normal right kidney. Normal left kidney. No abnormal calcifications are seen in the kidneys or the expected courses of the ureters bilaterally. Normal visualized stomach. Normal small intestine. There is fecal retention. The appendix is visualized and appears normal. Normal abdominal aorta. Normal inferior vena cava. Normal retroperitoneum. Normal urinary bladder. There is a small umbilical hernia containing fat. There is a small ventral hernia slightly more superiorly containing fat.. There is mild depression of the superior endplate of T11 and T12. There is no demonstrated acute osseous changes. CT/CT Abd/Pelvis W/WO Contrast IMPRESSION: 1. No evidence of urinary tract stones or hydronephrosis. 2. 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 3. No demonstrated acute process. 4. Ventral hernias containing fat. Electronically Signed: Quan Montoya MD at 11:37 EST Tel , Service support ,
[2018-07-07 10:57] LABS: CREATININE FINGERSTICK 0.9 mg/dL (0.55-1.02); EGFR FINGERSTICK > 60.0000 mL/min (>60)
== END ==
PROVIDERS: Referring Provider Urology; Visit Provider Urology
DX: N20.0 Calculus of kidney (principal); R10.9 Unspecified abdominal pain
CPT/HCPCS: 74178; Q9967

== ENCOUNTER → 2018-12-12 13:52 | Outpatient (CLI) | payer OTHER, SELFPAY ==
[2018-10-25 14:40] VITALS: BMI 39.5
[2018-12-12 15:21] LABS: Absolute Lymphocyte Count 3.36 X10^3/ul (0.83-4.51); Basophil# 0.04 X10^3/uL; Basophil% 0.4 % (0-1); Eosinophil# 0.15 X10^3/uL; Eosinophils% 1.5 % (0-5); Hematocrit 41.2 % (37-47); Hemoglobin 13.5 g/dl (12.0-15.0); Lymphocyte # 3.36 X10^3/ul (4.0); Lymphocyte % 33.1 % (19-41); Mean Corp Hgb Conc 32.8 g/gl (32-36); Mean Corpuscular Hgb 26.5 pg (27.0-32.0); Mean Corpuscular Volume 80.9 fL (81-99); Mean Platelet Vol. 11.4 fl (6.2-12.0); Monocyte# 0.58 X10^3/uL; Monocyte% 5.7 % (0-10); Neutrophil # 5.99 X10^3/uL (2.7-7.7); Platelet Count 286 K/mm3 (150-450); RBC Distribution Width CV 14.3 % (11.6-14.6); RBC Distribution Width SD 41.9 fl (35.1-43.9); Red Blood Count 5.09 M/mm3 (4.2-5.4); White Blood Count 10.2 K/mm3 (4.4-11.0)
[2018-12-12 15:30] LABS: ALB/GLOB Ratio 1.1 RATIO (0.9-2.4); AST(SGOT) 18 U/L (15-37); Alanine Aminotransfer ALT/SGPT 23 U/L (13-56); Albumin, Serum 3.9 g/dL (3.2-5.0); Alkaline Phosphatase 95 U/L (45-117); Anion Gap 6 (5-15); BUN 10 mg/dL (7-18); BUN/Creat Ratio 13.9 RATIO (10-20); Calcium,Total 8.9 mg/dL (8.5-10.1); Chloride 105 mmol/L (98-107); Creatinine, Serum 0.72 mg/dL (0.55-1.02); EST Glomerular Filtration Rate 103 mL/min (>60); Est Glom Filt Rate - Afr Amer 124 mL/min (>60); Globulin 3.6 g/dL (2.2-4.2); Glucose 84 mg/dL (74-106); Potassium 3.6 mmol/L (3.5-5.1); Protein, Total 7.5 g/dL (6.4-8.2); Sodium Level 138 mmol/L (136-145)
[2018-12-12 15:45] LABS: POSITIVE COUNT NO; POSITIVE DIFFERENTIAL NO; POSITIVE MORPHOLOGY NO
== END ==
PROVIDERS: Family Provider Internal Medicine; PCP Internal Medicine; Referring Provider Internal Medicine; Visit Provider Internal Medicine
DX: K52.9 Noninfective gastroenteritis and colitis, unspecified (principal); F41.8 Other specified anxiety disorders
CPT/HCPCS: 36415; 80053; 85025

== ENCOUNTER → 2019-07-11 12:21 | Outpatient (CLI) | payer BC, SELFPAY ==
[2018-12-13 14:40] VITALS: BMI 39.5
[2019-07-11 14:09] LABS: hCG Titer Quant., Serum 10 mIU/mL (1-3)
== END ==
LOC: LAB 12:26
PROVIDERS: PCP Internal Medicine; Referring Provider Obstetrics & Gynecology; Visit Provider Obstetrics & Gynecology
DX: N91.2 Amenorrhea, unspecified (principal)
CPT/HCPCS: 36415; 84702

== ENCOUNTER → 2019-07-13 10:52 | Outpatient (CLI) | payer BC, SELFPAY ==
[2019-07-12 16:48] VITALS: BMI 42.3
[2019-07-13 11:40] LABS: hCG Titer Quant., Serum 28 mIU/mL (1-3)
== END ==
LOC: LAB 10:54
PROVIDERS: PCP Internal Medicine; Referring Provider Obstetrics & Gynecology; Visit Provider Obstetrics & Gynecology
DX: N91.2 Amenorrhea, unspecified (principal)
CPT/HCPCS: 36415; 84702

== ENCOUNTER → 2019-07-20 08:07 | Outpatient (CLI) | payer BC, SELFPAY ==
[2019-07-12 16:48] VITALS: BMI 42.3
[2019-07-20 08:50] LABS: hCG Titer Quant., Serum 588 mIU/mL (1-3)
== END ==
PROVIDERS: PCP Internal Medicine; Visit Provider Nurse Practitioner Women's Health
DX: O20.0 Threatened abortion (principal); Z3A.00 Weeks of gestation of pregnancy not specified
CPT/HCPCS: 36415; 84702

== ENCOUNTER → 2019-07-20 15:57 | Outpatient (CLI) | payer BC, SELFPAY ==
[2019-07-12 16:48] VITALS: BMI 42.3
--- NOTE | 2019-07-20 15:59 | US_ITS ---
STUDY: FIRST TRIMESTER OBSTETRICAL ULTRASOUND REASON FOR EXAM: Female, 28 years old left lower quadrant CRAMPING - COMES AND GOES ---MODERATE BLEEDING- r/o ectopic LMP: 06/04/2019 TECHNIQUE: Transvaginal TECHNICAL QUALITY: Adequate. PRIOR ULTRASOUND: None. FINDINGS: There is visualization of a single gestational sac in a normal intrauterine position. The mean sac diameter (MSD) measures 2.5 mm, indicating an estimated gestational age (EGA) of 4 weeks, 5 days. The gestational sac shape is within normal limits. There is no demonstrated yolk sac. The placenta is non-visualized. There is no demonstrated embryo ( pole). The estimated gestation age (EGA) by LMP is 6 weeks, 4 days. The estimated date of delivery (CONI) by LMP is 03/10/2020. The estimated gestation age (EGA) by US is 4 weeks, 5 days. The estimated date of delivery (CONI) by US is 03/23/2020. The uterus measures 8.9 x 5.0 x 4.3 cm. There is no demonstrated uterine fibroid. The cervix is closed. Endometrial echoes measure 1.4 cm. The right ovary measures 3.3 x 1.6 x 2.1 cm. There is no right ovarian cyst. There is no visualized right adnexal mass or complex lesion. The left ovary measures 3.3 x 3.1 x 1.9 cm. 1.5 cm cyst There is no visualized left adnexal mass or complex lesion. There is no fluid in the cul de sac. US/Init OB < 14Wks US IMPRESSION: Findings most suggestive of a very early intrauterine gestation. Viability is not yet established since pole was not seen. Recommend short interval follow-up. Electronically Signed: Alvarez Jha MD at 21:53 EST , Service support ,
== END ==
LOC: US 15:59
PROVIDERS: PCP Internal Medicine; Referring Provider Obstetrics & Gynecology; Visit Provider Obstetrics & Gynecology
DX: O20.0 Threatened abortion (principal); Z3A.00 Weeks of gestation of pregnancy not specified
CPT/HCPCS: 76801

== ENCOUNTER → 2019-07-24 10:40 | Outpatient (CLI) | payer BC, SELFPAY ==
[2019-07-12 16:48] VITALS: BMI 42.3
[2019-07-24 11:55] LABS: hCG Titer Quant., Serum 2560 mIU/mL (1-3)
== END ==
PROVIDERS: PCP Internal Medicine; Referring Provider Obstetrics & Gynecology; Visit Provider Obstetrics & Gynecology
DX: O20.0 Threatened abortion (principal); Z3A.00 Weeks of gestation of pregnancy not specified
CPT/HCPCS: 36415; 84702

== ENCOUNTER → 2019-08-03 17:07 | Outpatient (CLI) | payer BC, SELFPAY ==
[2019-08-03 14:12] VITALS: BMI 39.5
[2019-08-03 19:17] LABS: Amphetamine Urine VISTA NEGATIVE (<1000 ng/mL); Barbiturate Urine VISTA NEGATIVE (< 200 ng/mL); Benzodiazepine Urine VISTA NEGATIVE (< 200 ng/mL); Cocaine Urine VISTA NEGATIVE (< 300 ng/mL); Ecstacy Urine VISTA NEGATIVE (< 500 ng/mL); Methadone Urine VISTA NEGATIVE (< 300 ng/mL); PCP Urine VISTA NEGATIVE (< 25 ng/mL); THC Urine VISTA NEGATIVE (< 50 ng/mL); Vista UDS pH Range 5
[2019-08-03 21:12] LABS: Chlamydia Trachomatis by PCR Negative (Negative); Neisserai gonorrhoeae by PCR Negative (Negative); Probe Check PASS; Sample Adequacy Control PASS; Specimen Processing Control PASS
== END ==
LOC: LABSPEC 17:09
PROVIDERS: PCP Internal Medicine; Referring Provider Obstetrics & Gynecology; Visit Provider Obstetrics & Gynecology
DX: Z34.90 Encounter for supervision of normal pregnancy, unspecified, unspecified trimester (principal)
CPT/HCPCS: 80307; 87086; 87088; 87491; 87591

== ENCOUNTER → 2019-08-21 16:16 | Outpatient (CLI) | payer BC, SELFPAY ==
[2019-08-21 14:45] VITALS: BMI 39.5
[2019-08-21 16:39] LABS: Absolute Lymphocyte Count 2.84 X10^3/uL (0.83-4.51); Absolute Neutrophil Count 8.7 X10^3/uL (2.0-7.7); Basophil# 0.05 X10^3/uL; Basophil% 0.4 % (0-1); Eosinophil# 0.15 X10^3/uL; Eosinophils% 1.2 % (0-5); Hematocrit 40.3 % (37-47); Hemoglobin 13.3 g/dL (12.0-15.0); Lymphocyte # 2.84 X10^3/ul (4.0); Lymphocyte % 22.8 % (19-41); Mean Corpuscular Hgb 28.4 pg (27.0-32.0); Mean Corpuscular Volume 86.1 fL (81-99); Mean Platelet Vol. 10.3 fl (6.2-12.0); Monocyte# 0.63 X10^3/uL; Monocyte% 5.1 % (0-10); NRBC Flagged by Analyzer 0 % (0-5); Neutrophil # 8.71 X10^3/uL (2.7-7.7); Neutrophil % 70.1 % (47-70); Platelet Count 252 K/mm3 (150-450); RBC Distribution Width CV 13.6 % (11.6-14.6); RBC Distribution Width SD 42.6 fl (35.1-43.9); Red Blood Count 4.68 M/mm3 (4.2-5.4); White Blood Count 12.4 K/mm3 (4.4-11.0)
[2019-08-21 17:35] LABS: Glucose Challenge Gest 1H 50g 122 mg/dL (70-140)
[2019-08-22 10:52] LABS: HIV - WCH Non-Reactive (Nonreactive); Hepatitis B Surface Antigen Non-Reactive (Nonreactive); Rubella IgG 251.1 IU/mL
[2019-08-22 10:57] LABS: Hepatitis C Antibody REACTIVE (Nonreactive)
[2019-08-25 04:37] LABS: Rapid Plasmin Reagin (RPR) NONREACTIVE (NONREACTIVE)
== END ==
PROVIDERS: PCP Internal Medicine; Referring Provider Obstetrics & Gynecology; Visit Provider Obstetrics & Gynecology
DX: Z34.90 Encounter for supervision of normal pregnancy, unspecified, unspecified trimester (principal)
CPT/HCPCS: 36415; 82950; 85025; 86592; 86703; 86762; 86803; 86850; 86900; 86901; 87340

== ENCOUNTER → 2019-08-23 09:52 | Outpatient (CLI) | payer BC, SELFPAY ==
[2019-08-21 14:45] VITALS: BMI 39.5
[2019-08-23 10:20] LABS: ALB/GLOB Ratio 0.9 RATIO (0.9-2.4); AST(SGOT) 10 U/L (15-37); Alanine Aminotransfer ALT/SGPT 22 U/L (13-56); Albumin, Serum 3.6 g/dL (3.2-5.0); Alkaline Phosphatase 74 U/L (45-117); Anion Gap 8 (5-15); BUN 7 mg/dL (7-18); BUN/Creat Ratio 10.2 RATIO (10-20); Calcium,Total 9.1 mg/dL (8.5-10.1); Chloride 104 mmol/L (98-107); Creatinine, Serum 0.68 mg/dL (0.55-1.02); EST Glomerular Filtration Rate 108 mL/min (>60); Est Glom Filt Rate - Afr Amer 131 mL/min (>60); Globulin 4.1 g/dL (2.2-4.2); Glucose 91 mg/dL (74-106); Potassium 3.7 mmol/L (3.5-5.1); Protein, Total 7.7 g/dL (6.4-8.2); Sodium Level 138 mmol/L (136-145)
[2019-09-05 03:06] LABS: HCV Quant. RNA PCR HCV Not Detected IU/mL (.); HEPATITIS B SURFACE AG Negative (Negative); Hepatitis A IgM Antibody Negative (Negative); Hepatitis B Core AB IgM Negative (Negative)
[2019-09-05 17:37] LABS: Hep C Antibodies 4.2 s/co ratio (0.0-0.9)
== END ==
PROVIDERS: PCP Internal Medicine; Referring Provider Obstetrics & Gynecology; Visit Provider Obstetrics & Gynecology
DX: R76.8 Other specified abnormal immunological findings in serum (principal)
CPT/HCPCS: 36415; 80053; 80074; 87522

== ENCOUNTER → 2019-08-25 10:37 | Outpatient (CLI) | payer BC, SELFPAY ==
[2019-08-21 14:45] VITALS: BMI 39.5
[2019-08-25 11:44] LABS: NATERA MAILED SPECIMEN
== END ==
PROVIDERS: PCP Internal Medicine; Referring Provider Obstetrics & Gynecology; Visit Provider Obstetrics & Gynecology
DX: Z34.81 Encounter for supervision of other normal pregnancy, first trimester (principal)
CPT/HCPCS: 36415

== ENCOUNTER → 2020-01-02 08:57 | Outpatient (CLI) | payer OTHER, SELFPAY ==
[2019-11-30 14:34] VITALS: BMI 39.5
[2020-01-02 09:15] LABS: Absolute Lymphocyte Count 1.68 X10^3/uL (0.83-4.51); Absolute Neutrophil Count 8.6 X10^3/uL (2.0-7.7); Basophil# 0.04 X10^3/uL; Basophil% 0.4 % (0-1); Eosinophil# 0.08 X10^3/uL; Eosinophils% 0.7 % (0-5); Hematocrit 35.4 % (37-47); Lymphocyte # 1.68 X10^3/ul (4.0); Lymphocyte % 15.6 % (19-41); Mean Corp Hgb Conc 33.9 g/dL (32-36); Mean Corpuscular Hgb 29.7 pg (27.0-32.0); Mean Corpuscular Volume 87.6 fL (81-99); Mean Platelet Vol. 10.7 fl (6.2-12.0); Monocyte# 0.34 X10^3/uL; Monocyte% 3.2 % (0-10); NRBC Flagged by Analyzer 0 % (0-5); Neutrophil # 8.58 X10^3/uL (2.7-7.7); Neutrophil % 79.5 % (47-70); Platelet Count 207 K/mm3 (150-450); RBC Distribution Width CV 13.2 % (11.6-14.6); RBC Distribution Width SD 41.3 fl (35.1-43.9); Red Blood Count 4.04 M/mm3 (4.2-5.4); White Blood Count 10.8 K/mm3 (4.4-11.0)
[2020-01-02 09:41] LABS: Glucose Challenge Gest 1H 50g 183 mg/dL (70-140)
== END ==
PROVIDERS: PCP Internal Medicine; Referring Provider Obstetrics & Gynecology; Visit Provider Obstetrics & Gynecology
DX: O09.90 Supervision of high risk pregnancy, unspecified, unspecified trimester (principal); Z3A.00 Weeks of gestation of pregnancy not specified
CPT/HCPCS: 36415; 82950; 85025

== ENCOUNTER 2020-01-16 13:07 | Outpatient (RCR) | payer SELFPAY ==
[2020-01-03 08:50] VITALS: BMI 39.5
[2020-01-12 08:09] VITALS: BMI 47.0
== END 2020-01-29 23:59 ==
LOC: DC 13:07
PROVIDERS: PCP Internal Medicine; Visit Provider Obstetrics & Gynecology
DX: Z71.3 Dietary counseling and surveillance (principal); O24.419 Gestational diabetes mellitus in pregnancy, unspecified control; Z3A.00 Weeks of gestation of pregnancy not specified
CPT/HCPCS: 97802

== ENCOUNTER → 2020-01-26 16:09 | Outpatient (CLI) | payer OTHER, SELFPAY ==
[2020-01-17 12:20] VITALS: BMI 47.0
--- NOTE | 2020-01-26 16:10 | US_ITS ---
STUDY: SECOND AND THIRD TRIMESTER OBSTETRICAL ULTRASOUND REASON FOR EXAM: Female, 29 years old. MELY. LMP: 06/04/2019. TECHNIQUE: Transabdominal TECHNICAL QUALITY: Adequate. PRIOR ULTRASOUND: 07/20/2019. FINDINGS: There is a single intrauterine fetus. The fetus is in a cephalic presentation. There is demonstrated cardiac activity with a heart rate of 150 bpm. There is a normal amniotic fluid volume. The largest amniotic fluid pocket measures 4.52 cm. The amniotic fluid index (MELY) is 14.25 cm. The placenta is fundal and anterior and not low lying. There are Grade 1 placental changes. The cervix measures 3.06 cm in length. The adnexal regions are not visualized. age by prior US: 31 weeks, 6 days. CONI by prior US: 03/23/2020. Age by LMP: 33 weeks, 5 days. CONI by LMP: 03/10/2020. US/OB Limited (No Biometrics) IMPRESSION: 1. Limited study for MELY. The MELY is 14.25 cm. 2. Single intrauterine in a cephalic presentation. 3. Frontal and anterior grade 1 placenta. 4. Closed cervix is 3.06 cm. Electronically Signed: Jeff Samuels DO at 18:24 EDT Tel [phone], Service support ,
== END ==
PROVIDERS: PCP Internal Medicine; Referring Provider Obstetrics & Gynecology; Visit Provider Obstetrics & Gynecology
DX: O09.90 Supervision of high risk pregnancy, unspecified, unspecified trimester (principal); O24.414 Gestational diabetes mellitus in pregnancy, insulin controlled; Z3A.00 Weeks of gestation of pregnancy not specified
CPT/HCPCS: 76815

== ENCOUNTER 2020-01-29 19:31 | Outpatient (CLI) | payer OTHER, SELFPAY ==
[2020-01-29 14:27] VITALS: BMI 47.0
[2020-01-29 19:54] VITALS: BP 121/75; PULSE 109; TEMP 36.9
[2020-01-29 20:01] VITALS: BMI 47.0
[2020-01-29 20:39] VITALS: BP 90/50; PULSE 113; TEMP 37.2; O2SAT 98
[2020-01-29 20:47] VITALS: BP 96/60; PULSE 104
--- NOTE | 2020-01-29 21:42 | OB.TRI.HP_ITS ---
- Problem List (1) contractions Status: Acute Comment: In OB triage 01/29/2020 for contractions. Cervix was closed. Contractions decreased in frequency. Given first dose of betamethasone. Return tomorrow for second dose. History of Present Illness Date of Service: 01/29/20 Was patient seen by the physician?: Yes Reason For Visit: RULE OUT LABOR Date of Service: 01/29/20 Final CONI: 03/23/20 Final CONI Source: US <20 weeks Gestational age: 32 Weeks and 2 Days History of Present Illness: Patient is a 29-year-old G2, P1 at 32 weeks 2 days gestation presenting to OB triage with contractions. Was seen in the office earlier today for a nonstress test and was found to be dada on the monitor at that time. Her cervix was closed in the office and labor precautions were reviewed with her. She called the answering service this evening reporting contractions every 1 to 2 minutes they were becoming increasingly painful. Denies leakage of fluid, vaginal bleeding, decreased movement. Denies dysuria. Reports increased discharge. Vaginal culture sent in the office. Allergies No Known Allergies Allergy (Verified 01/29/20 14:27) - Pertinent Past Medical History Medical History: Past Medical History (Last Reviewed 01/29/20 @ 14:26 by Zakiya Wright) Asthma Bulging lumbar disc Gastrointestinal problem Headaches, cluster History of kidney stones History of pancreatic cancer Pancreatomegaly Polycystic disease, ovaries Surgical History: Past Surgical History (Last Reviewed 01/29/20 @ 14:26 by Zakiya Wright) H/O lithotripsy History of section History of pancreatectomy DISTAL Review of Systems Constitutional: Denies: Chills, Fever Cardiovascular: Denies: Chest Pain, Light Headedness Gastrointestinal: Denies: Nausea, Vomiting Genitourinary: Denies: Dysuria, Frequency Gynecological: Reports: Vaginal discharge. Denies: Vaginal bleeding, Vaginal itching Physical Exam Vitals: Vital Signs Temp Pulse BP Pulse Ox 98.9 F 104 H 96/60 98 01/29/20 20:39 01/29/20 20:47 01/29/20 20:47 01/29/20 20:39 General: Alert, Oriented x3, No apparent distress HEENT: Atraumatic, Normocephalic Cardiovascular: Regular rate Lungs: Normal air movement Abdomen: Soft, Non Tender, Non-Distended, Gravid, Appropriate for Gestational Age Neurological: Cranial nerves II-XII grossly intact, Neuro grossly intact LIFE SKILLS EDUCATOR: Normal external genitalia. Negative for: Vulvar lesions Estimated gestational size: Appropriate for gestational size Presentation: Cephalic Cervix Dilation (cm): 0 Station: -3 Effacement (%): 40 NST - FHR Rate Baby A Baseline: 130 Variability:: Moderate Accelerations:: 15 x 15 Decelerations:: None NST Reactive:: Yes FHR Category:: Category I Uterine Activity:: every 4-7 minutes Impression/Plan 29-year-old G2, P1 at 32 weeks 2 days presenting with threatened labor -Contractions spaced out significantly and patient not uncomfortable with contractions. -Does endorse increased vaginal discharge. Vaginal culture collected and sent i n the office today. -Patient remains closed on cervical exam. -Does not appear uncomfortable with contractions. -We will plan to give a dose of betamethasone at this time considering that she has been dada intermittently since last Wednesday. Will have patient return tomorrow for second dose of steroids. Given that patient is diabetic, recommended that she inform the offshore wind operations manager that she is receiving betamethasone so that they can adjust her insulin accordingly. - labor precautions reviewed-counseled patient to call the office if contractions become more frequent or more painful, if she experiences leakage of fluid, if she experiences decreased movement, and for vaginal bleeding that is enough that she has to wear a pad. Voices understanding and feels comfortable returning home with good precautions. -Has appointment scheduled to be seen in the office on Wednesday. Counseled patient to keep this appointment. Multi Select Codes - Visit Charges Office Visit/Consults: 14075 OV L3 Est - Urinary/Genital Urinary/Genital CPT Codes: 98776-20 non-stress test Interp
[2020-01-29] MEDS: Betamethasone/Betamethasone 30 MG/5 ML Vial 12 MG IM (21:52)
== END 2020-01-29 22:00 | disposition home or self-care (01) ==
LOC: WPOUT 19:37 → OBT 19:38
PROVIDERS: PCP Internal Medicine; Visit Provider Obstetrics & Gynecology
DX: O60.03 Preterm labor without delivery, third trimester (principal); O24.913 Unspecified diabetes mellitus in pregnancy, third trimester; O99.513 Diseases of the respiratory system complicating pregnancy, third trimester; J45.909 Unspecified asthma, uncomplicated; O99.283 Endocrine, nutritional and metabolic diseases complicating pregnancy, third trimester; E28.2 Polycystic ovarian syndrome; Z3A.32 32 weeks gestation of pregnancy; Z79.4 Long term (current) use of insulin; Z87.442 Personal history of urinary calculi; Z85.07 Personal history of malignant neoplasm of pancreas
CPT/HCPCS: 59025; 59050; 96372; 99218; G0378; J0702

== ENCOUNTER → 2020-01-29 | Outpatient (CLI) | payer OTHER, SELFPAY ==
[2020-01-29 14:27] VITALS: BMI 47.0
== END | disposition home or self-care (01) ==
PROVIDERS: PCP Internal Medicine; Referring Provider Obstetrics & Gynecology; Visit Provider Obstetrics & Gynecology
DX: N89.8 Other specified noninflammatory disorders of vagina (principal)
CPT/HCPCS: 87070; 87205

== ENCOUNTER 2020-01-30 17:03 | Outpatient (RCR) | payer OTHER, SELFPAY ==
[2020-01-29 20:01] VITALS: BMI 47.0
== END 2020-02-28 23:59 ==
LOC: DC 17:03
PROVIDERS: PCP Internal Medicine; Visit Provider Obstetrics & Gynecology
DX: Z71.3 Dietary counseling and surveillance (principal); O24.419 Gestational diabetes mellitus in pregnancy, unspecified control; Z3A.00 Weeks of gestation of pregnancy not specified

== ENCOUNTER 2020-01-30 19:00 | Outpatient (CLI) | payer OTHER, SELFPAY ==
[2020-01-29 20:01] VITALS: BMI 47.0
[2020-01-30 19:36] VITALS: BMI 47.2
[2020-01-30] MEDS: Betamethasone/Betamethasone 30 MG/5 ML Vial 12 MG IM (19:48)
[2020-01-30 20:03] VITALS: BP 114/58; PULSE 100; O2SAT 96
--- NOTE | 2020-02-26 13:53 | OB.TRI.PN ---
Progress Notes Date of Service: 01/30/20 Progress Note: Nurse only visit for dose of BMZ. Multi Select Codes - Urinary/Genital Urinary/Genital CPT Codes: No Charge
== END 2020-01-30 20:05 | disposition home or self-care (01) ==
LOC: WPOUT 19:04 → WP 19:05
PROVIDERS: PCP Internal Medicine; Referring Provider Obstetrics & Gynecology; Visit Provider Obstetrics & Gynecology
DX: Z34.90 Encounter for supervision of normal pregnancy, unspecified, unspecified trimester (principal)
CPT/HCPCS: 96372; 99218; G0378; J0702

== ENCOUNTER 2020-02-01 09:18 | Outpatient (CLI) | payer OTHER, SELFPAY ==
[2020-02-01 09:00] VITALS: BMI 47.2
--- NOTE | 2020-02-01 09:25 | CT_ITS ---
STUDY: CT ABDOMEN AND PELVIS WITHOUT CONTRAST REASON FOR EXAM: Female, 29 years old. RT FLANK PAIN, ?KS VS APPY, DB, POLYCYSTIC OVARIES, SURG-TUMOR REMOVED FROM PANCREAS WITH RECONSTRUCTED SPLEEN, LITHOTRIPSY, RADIATION DOSAGE (If Supplied By Facility): CTDIvol = ( 23.01 ) mGy, DLP = ( 1184.41 ) mGycm TECHNIQUE: Transaxial images were obtained from the dome of the diaphragm to the symphysis pubis without oral contrast, and without intravenous contrast. Sagittal and coronal images were reconstructed. Individualized dose optimization techniques were used for this CT. COMPARISON: Comparison is made with prior study dated 07/07/2018. FINDINGS: The visualized lung bases are unremarkable. The visualized portions of the heart are within normal limits. Normal liver. Normal gallbladder and extrahepatic biliary system. Normal spleen. Surgical clips are seen in the tail portion of the pancreas in keeping with a history of prior partial pancreatic resection. Normal bilateral adrenal glands. Tiny nonobstructive calculi are seen in the lower pole calyx of both kidneys. There is a small hiatal hernia. Normal small intestine. Normal colon. The appendix is visualized and appears normal. Normal abdominal aorta. Normal inferior vena cava. Normal retroperitoneum. Normal urinary bladder. There is evidence of intrauterine gestation. Normal abdominal wall. Normal osseous structures. Schmorl''s nodes seen in the superior endplate of the T11 and T12 vertebrae. CT/Abdomen/Pelvis without Cont IMPRESSION: Nonobstructive bilateral intrarenal calculi. Electronically Signed: Felix Celeste, at 10:30 EDT , Service support ,
[2020-02-01 09:33] VITALS: BMI 46.0
[2020-02-01 09:37] VITALS: TEMP 36.1; O2SAT 96
[2020-02-01] MEDS: Ondansetron 4 MG/2 ML Vial IV (09:49)
[2020-02-01] MEDS: Lactated Ringers 1,000 ML 999 ML IV (09:49)
[2020-02-01 10:10] LABS: Absolute Lymphocyte Count 2.22 X10^3/uL (0.83-4.51); Absolute Neutrophil Count 9.3 X10^3/uL (2.0-7.7); Basophil# 0.03 X10^3/uL; Basophil% 0.2 % (0-1); Eosinophil# 0.03 X10^3/uL; Eosinophils% 0.2 % (0-5); Hematocrit 38.3 % (37-47); Hemoglobin 12.6 g/dL (12.0-15.0); Lymphocyte # 2.22 X10^3/ul (4.0); Lymphocyte % 17.6 % (19-41); Mean Corp Hgb Conc 32.9 g/dL (32-36); Mean Corpuscular Hgb 28.9 pg (27.0-32.0); Mean Corpuscular Volume 87.8 fL (81-99); Mean Platelet Vol. 10.6 fl (6.2-12.0); Monocyte# 0.89 X10^3/uL; Monocyte% 7.1 % (0-10); NRBC Flagged by Analyzer 0 % (0-5); Neutrophil # 9.27 X10^3/uL (2.7-7.7); Neutrophil % 73.6 % (47-70); Platelet Count 241 K/mm3 (150-450); RBC Distribution Width CV 13.3 % (11.6-14.6); RBC Distribution Width SD 42.5 fl (35.1-43.9); Red Blood Count 4.36 M/mm3 (4.2-5.4); White Blood Count 12.6 K/mm3 (4.4-11.0)
[2020-02-01 10:27] LABS: ALB/GLOB Ratio 0.7 RATIO (0.9-2.4); AST(SGOT) 12 U/L (15-37); Alanine Aminotransfer ALT/SGPT 17 U/L (13-56); Albumin, Serum 2.8 g/dL (3.2-5.0); Alkaline Phosphatase 111 U/L (45-117); Anion Gap 6 (5-15); BUN 9 mg/dL (7-18); BUN/Creat Ratio 17.7 RATIO (10-20); Calcium,Total 8.7 mg/dL (8.5-10.1); Chloride 111 mmol/L (98-107); Creatinine, Serum 0.51 mg/dL (0.55-1.02); EST Glomerular Filtration Rate 152 mL/min (>60); Est Glom Filt Rate - Afr Amer 183 mL/min (>60); Estimated Creatinine Clearance 128.73 ml/min; Globulin 4.2 g/dL (2.2-4.2); Glucose 86 mg/dL (74-106); Lipase 250 U/L (73-393); Potassium 4.1 mmol/L (3.5-5.1); Sodium Level 140 mmol/L (136-145)
[2020-02-01 10:37] LABS: Mucous, Urine 0 SEEN /hpf (<or=2+); Red Blood Cells-Urine 0 SEEN /hpf (0-5)
[2020-02-01] MEDS: Lactated Ringers 1,000 ML 150 ML IV (10:51)
[2020-02-01] MEDS: Cefazolin 2 GM in 0.9% Normal Saline 100 ML IV (10:51)
[2020-02-01 10:59] LABS: Color, Urine Yellow (Yellow); Glucose, Dipstick Normal (Normal); Ketone-Dipstick Negative (Negative); Leukocyte Esterase-Dipstick 500 /ul (Negative); Nitrite-Dipstick Negative (Negative); Occult Blood-Urine Negative /ul (Negative); Protein-Dipstick Negative (Negative); Urine Bilirubin Dipstick Negative (Negative); Urine Clarity Sl. Cloudy (Clear); Urine Urobilinogen Normal (Normal)
[2020-02-01 11:05] LABS: Bacteria 1+ /hpf (None Seen); Squamous Epithelial Cells - UA 10-25 SEEN /hpf (5-10); White Blood Cells 25-50 SEEN /hpf (0-5)
[2020-02-01] MEDS: oxyCODONE 5 MG Tablet PO (11:45)
--- NOTE | 2020-02-01 12:24 | OB.TRI.NOTE ---
- Problem List (1) Nephrolithiasis Status: Acute (2) contractions Status: Acute Comment: In OB triage 01/29/2020 for contractions. Cervix was closed. Contractions decreased in frequency. Given first dose of betamethasone. Return tomorrow for second dose. (3) Gestational diabetes mellitus (GDM) requiring insulin Status: Acute Comment: omnipod, endocrine managing insulin, plan 2x weekly nsts, weekly eileen, q4 week growth us. deliver at 39 (4) History of pancreatic cancer Status: Acute Comment: Age 22-partial removal of pancreas (5) Hepatitis C antibody test positive Status: Acute Comment: check RNA/CMP q trimester. s/p mfm consult. (6) History of delivery Status: Acute Comment: sec AOD 10cm. plan RLTCS and BS w/ SM (7) Obesity affecting Status: Acute Qualifiers: Trimester: second trimester Qualified Code(s): O99.212 - Obesity complicating , second trimester Comment: nl 1 TM glucola, plan 3rd trimester testing, encourage healthy weight gain (8) Supervision of high risk , antepartum Status: Acute Comment: PRR CONI 03/23/20 girl Paulette Blank Samson (9) Status: Acute Qualifiers: Weeks of gestation: 23 weeks Qualified Code(s): Z3A.23 - 23 weeks gestation of Comment: low risk NIPT. carrier and ntd screening declined. US normal History of Present Illness Date of Service: 02/01/20 Was patient seen by the physician?: Yes Reason For Visit: EXTENDED MONITORING Final CONI Source: US <20 weeks Allergies No Known Allergies Allergy (Verified 02/01/20 08:59) - Pertinent Past Medical History Medical History: Past Medical History (Last Reviewed 02/01/20 @ 09:00 by Amirah De Leon) Asthma Bulging lumbar disc Gastrointestinal problem Headaches, cluster History of kidney stones History of pancreatic cancer Pancreatomegaly Polycystic disease, ovaries Surgical History: Past Surgical History (Last Reviewed 02/01/20 @ 09:00 by Amirah De Leon) H/O lithotripsy History of section History of pancreatectomy DISTAL Laboratory Studies: Laboratory Tests 02/01/20 02/01/20 02/01/20 Range/Units 10:25 09:55 09:55 WBC 12.6 H (4.4-11.0) K/mm3 RBC 4.36 (4.2-5.4) M/mm3 Hgb 12.6 (12.0-15.0) g/dL Hct 38.3 (37-47) % MCV 87.8 (81-99) fL MCH 28.9 (27.0-32.0) pg MCHC 32.9 (32-36) g/dL RDW Std Deviation 42.5 (35.1-43.9) fl RDW Coeff of [place] 13.3 (11.6-14.6) % Plt Count 241 (150-450) K/mm3 MPV 10.6 (6.2-12.0) fl Immature Gran % (Auto) 1.300 H (0.0-0.9) % Neut % (Auto) 73.6 H (47-70) % Lymph % (Auto) 17.6 L (19-41) % [place] % (Auto) 7.1 (0-10) % Eos % (Auto) 0.2 (0-5) % Baso % (Auto) 0.2 (0-1) % Absolute Neuts (auto) 9.3 H (2.0-7.7) X10^3/uL Absolute Lymphs (auto) 2.22 (0.83-4.51) X10^3/uL Nucleated RBC % 0 (0-5) % Sodium 140 (136-145) mmol/L Potassium 4.1 (3.5-5.1) mmol/L Chloride 111 H (98-107) mmol/L Carbon Dioxide 23.0 (21.0-32.0) mmol/L Anion Gap 6 (5-15) BUN 9 (7-18) mg/dL Creatinine 0.51 L (0.55-1.02) mg/dL Estim Creat Clear Calc 128.73 ml/min Est GFR (MDRD) Af Amer 183 (>60) mL/min Est GFR (MDRD) Non-Af 152 (>60) mL/min BUN/Creatinine Ratio 17.7 (10-20) RATIO Glucose 86 (74-106) mg/dL Calcium 8.7 (8.5-10.1) mg/dL Total Bilirubin 0.20 (0.20-1.00) mg/dL AST 12 L (15-37) U/L ALT 17 (13-56) U/L Alkaline Phosphatase 111 (45-117) U/L Total Protein 7.0 (6.4-8.2) g/dL Albumin 2.8 L (3.2-5.0) g/dL Globulin 4.2 (2.2-4.2) g/dL Albumin/Globulin Ratio 0.7 L (0.9-2.4) RATIO Lipase 250 (73-393) U/L Urine Color Yellow (Yellow) Urine Clarity Sl. Cloudy (Clear) Urine pH 7.0 (5.0 - 8.0) Ur Specific [place] 1.010 (1.002-1.030) Urine Protein Negative (Negative) mg/dl Urine Glucose (UA) Normal (Normal) mg/dl Urine Ketones Negative (Negative) mg/dl Urine Occult Blood Negative (Negative) /ul Urine Nitrite Negative (Negative) Urine Bilirubin Negative (Negative) mg/dL Urine Urobilinogen Normal (Normal) mg/dl Ur Leukocyte Esterase 500 H (Negative) /ul Urine RBC 0 SEEN (0-5) /hpf Urine WBC 25-50 SEEN (0-5) /hpf Ur Squamous Epith Cells 10-25 SEEN (5-10) /hpf Urine Bacteria 1+ (None Seen) /hpf Urine Mucus 0 SEEN (<or=2+) /hpf Physical Exam Vitals: Vital Signs Temp Pulse Ox 96.9 F L 96 02/01/20 09:37 02/01/20 09:37 NST - FHR Rate Baby A Baseline: 140 Variability:: Moderate Accelerations:: 15 x 15 Decelerations:: None NST Reactive:: Yes FHR Category:: Category I Uterine Activity:: irritability Impression/Plan Patient with bilateral kidney stones given IV fluids and pain medications, encourage aggressive hydration and follow-up in the office. Reactive NST Multi Select Codes - Urinary/Genital Urinary/Genital CPT Codes: 72379-78 non-stress test Interp
== END 2020-02-01 11:55 | disposition home or self-care (01) ==
LOC: WPOUT 09:21 → OBT 09:23
PROVIDERS: PCP Internal Medicine; Referring Provider Obstetrics & Gynecology; Visit Provider Obstetrics & Gynecology
DX: O99.89 Other specified diseases and conditions complicating pregnancy, childbirth and the puerperium (principal); N20.0 Calculus of kidney; O99.519 Diseases of the respiratory system complicating pregnancy, unspecified trimester; J45.909 Unspecified asthma, uncomplicated; O99.280 Endocrine, nutritional and metabolic diseases complicating pregnancy, unspecified trimester; E28.2 Polycystic ovarian syndrome; O99.210 Obesity complicating pregnancy, unspecified trimester; E66.9 Obesity, unspecified; Z3A.00 Weeks of gestation of pregnancy not specified; Z85.07 Personal history of malignant neoplasm of pancreas; Z87.442 Personal history of urinary calculi; Z79.4 Long term (current) use of insulin
CPT/HCPCS: 96361; 96365; 96374; 36415; 59025; 59050; 74176; 80053; 81001; 83690; 85025; 87086; 87088; 99218; J7120; G0378; J2405

== ENCOUNTER → 2020-02-02 16:15 | Outpatient (CLI) | payer OTHER, SELFPAY ==
[2020-01-17 12:20] VITALS: BMI 47.0
[2020-02-01 09:33] VITALS: BMI 46.0
--- NOTE | 2020-02-02 16:17 | US_ITS ---
STUDY: SECOND AND THIRD TRIMESTER OBSTETRICAL ULTRASOUND - LIMITED REASON FOR EXAM: Female, 29 years old MELY ONLY LMP: 06/17/2019 PRIOR ULTRASOUND: 01/26/2020 TECHNIQUE: Transabdominal TECHNICAL QUALITY: Adequate. FINDINGS: There is a single intrauterine fetus. The fetus is in a cephalic presentation. There is demonstrated cardiac activity with a heart rate of 133 bpm. There is a normal amniotic fluid volume. The largest amniotic fluid pocket measures 3.7 cm. The amniotic fluid index (MELY) is 10.0 cm. The placenta is fundal in location. There are Grade 1 placental changes. The cervix measures cm in length. Age by LMP: 32 weeks, 6 days. CONI by LMP: 03/23/2020. US/OB Limited (No Biometrics) IMPRESSION: Living intrauterine of 32 weeks 6 days as described above. Amniotic fluid 10.0 cm. Electronically Signed: Lloyd Horvath MD at 8:26 EDT Tel , Service support ,
== END ==
PROVIDERS: PCP Internal Medicine; Referring Provider Obstetrics & Gynecology; Visit Provider Obstetrics & Gynecology
DX: O09.90 Supervision of high risk pregnancy, unspecified, unspecified trimester (principal); O24.414 Gestational diabetes mellitus in pregnancy, insulin controlled; Z3A.00 Weeks of gestation of pregnancy not specified
CPT/HCPCS: 76815

== ENCOUNTER 2020-02-09 16:13 | Outpatient (CLI) | payer OTHER, SELFPAY ==
[2020-01-17 12:20] VITALS: BMI 47.0
[2020-02-09 10:33] VITALS: BMI 46.0
--- NOTE | 2020-02-09 16:20 | US_ITS ---
STUDY: SECOND AND THIRD TRIMESTER OBSTETRICAL ULTRASOUND - LIMITED REASON FOR EXAM: Female, 29 years old. Growth. LMP: Unknown. PRIOR ULTRASOUND: 02/02/20 TECHNIQUE: Transabdominal ultrasound evaluation was performed. FINDINGS: There is a single intrauterine fetus. The fetus is in a cephalic presentation. There is demonstrated cardiac activity with a heart rate of 133 bpm. The amniotic fluid index (MELY) is 5.7 cm. The largest fluid pocket measures 1.8 cm. The placenta is fundal and not low-lying. There are Grade 2 placental changes. The cervix is not well visualized. BIOMETRY: BPD: 8.42 cm: 34 weeks, 0 days HC: 31.43 cm: 35 weeks, 2 days AC: 31.01 cm: 35 weeks, 0 days FL: 6.59 cm: 34 weeks, 0 days Age by LMP: 33 weeks, 6 days. CONI by LMP: 03/23/20. age by current US: 34 weeks, 4 days. CONI by current US: 03/18/20. Estimated weight: 2470 grams, +/- 361 grams. US/OB Limited With Biometrics IMPRESSION: Single live intrauterine gestation at approximately 34 weeks and 4 days based on the current ultrasound. Electronically Signed: Vineet Flores, at 18:06 EDT Tel , Service support ,
[2020-02-09 18:02] VITALS: BP 113/73; PULSE 95; TEMP 36.8; O2SAT 97
[2020-02-09 18:34] VITALS: BMI 46.1
[2020-02-09] MEDS: Lactated Ringers 1,000 ML 999 ML IV (19:50)
[2020-02-09 19:54] VITALS: BP 105/58; PULSE 87; TEMP 36.6; O2SAT 99
[2020-02-09 20:25] LABS: Hematocrit 39.8 % (37-47); Hemoglobin 13.2 g/dL (12.0-15.0); Mean Corp Hgb Conc 33.2 g/dL (32-36); Mean Corpuscular Hgb 28.9 pg (27.0-32.0); Mean Corpuscular Volume 87.3 fL (81-99); Mean Platelet Vol. 10.8 fl (6.2-12.0); Platelet Count 247 K/mm3 (150-450); RBC Distribution Width CV 13.2 % (11.6-14.6); RBC Distribution Width SD 41.3 fl (35.1-43.9); Red Blood Count 4.56 M/mm3 (4.2-5.4); White Blood Count 9.9 K/mm3 (4.4-11.0)
[2020-02-09 20:46] LABS: ALB/GLOB Ratio 0.7 RATIO (0.9-2.4); AST(SGOT) 14 U/L (15-37); Alanine Aminotransfer ALT/SGPT 22 U/L (13-56); Albumin, Serum 2.8 g/dL (3.2-5.0); Alkaline Phosphatase 143 U/L (45-117); Anion Gap 8 (5-15); BUN 15 mg/dL (7-18); BUN/Creat Ratio 25.3 RATIO (10-20); Calcium,Total 9.3 mg/dL (8.5-10.1); Chloride 106 mmol/L (98-107); Creatinine, Serum 0.59 mg/dL (0.55-1.02); EST Glomerular Filtration Rate 127 mL/min (>60); Est Glom Filt Rate - Afr Amer 154 mL/min (>60); Estimated Creatinine Clearance 111.27 ml/min; Globulin 4.3 g/dL (2.2-4.2); Glucose 91 mg/dL (74-106); Protein, Total 7.1 g/dL (6.4-8.2); Sodium Level 137 mmol/L (136-145)
[2020-02-09] MEDS: Lactated Ringers 1,000 ML 200 ML IV (21:14)
[2020-02-10 00:52] VITALS: BP 103/51; PULSE 84; TEMP 36.3
[2020-02-10] MEDS: Lactated Ringers 1,000 ML 200 ML IV (02:11)
[2020-02-10 05:41] VITALS: BP 107/67; PULSE 92; TEMP 36; O2SAT 97
--- NOTE | 2020-02-10 07:15 | HP.PCM_ITS ---
- Problem List (1) Nephrolithiasis Status: Acute Comment: fluids, percocet PRN (2) Gestational diabetes mellitus (GDM) requiring insulin Status: Acute Comment: omnipod, endocrine managing insulin, plan 2x weekly nsts, weekly mely, q4 week growth us. NL US 02/06/20 deliver at 39 (3) History of pancreatic cancer Status: Acute Comment: Age 22-partial removal of pancreas (4) Hepatitis C antibody test positive Status: Acute Comment: check RNA/CMP q trimester. s/p mfm consult. (5) History of delivery Status: Acute Comment: sec AOD 10cm. plan RLTCS and BS w/ SM (6) Obesity affecting Status: Acute Qualifiers: Comment: nl 1 TM glucola, plan 3rd trimester testing, encourage healthy weight gain (7) Supervision of high risk , antepartum Status: Acute Comment: PRR CONI 03/23/20 girl Paulette Blank Samson (8) Status: Acute Qualifiers: Comment: low risk NIPT. carrier and ntd screening declined. US normal (9) Oligohydramnios Status: Acute History Date of Admission: 02/09/20 Final CONI Source: US <20 weeks History of this : This is a 29 year-old, G 2P1, at 34 weeks gestational age presents for admission secondary to MELY of 5.7 today in the ultrasound. She has had a complicated by diabetes, hepatitis C, and nephrolithiasis and growth has been within normal limits however now the fluid level is borderline abnormal. Patient denies any loss of fluid and has been struggling with pain control due to kidney stones this week.. Medical History: Medical History (Last Reviewed 02/09/20 @ 09:53 by Ivanna Montoya) Asthma J45.909 Bulging lumbar disc M51.26 Gastrointestinal problem R19.8 Headaches, cluster G44.009 History of kidney stones Z87.442 History of pancreatic cancer Z85.07 Pancreatomegaly K86.89 Polycystic disease, ovaries E28.2 Surgical History: Surgical History (Last Reviewed 02/09/20 @ 09:53 by Ivanna Montoya) H/O lithotripsy Z98.890 History of section Z98.891 History of pancreatectomy Z90.410 DISTAL Allergies No Known Allergies Allergy (Verified 02/09/20 20:00) Home Medications: Home Medications prenat.vits,kirill,trf-ktof-mefug 1 tab PO DAILY 07/12/19 flash glucose sensor See Rx Instructions .ROUTE .MEDSUPPLY #2 ea 01/12/20 pen needle, diabetic 32 gauge x See Rx Instructions .ROUTE .MEDSUPPLY #200 ea 01/12/20 pen needle, diabetic 32 gauge x 32 See Rx Instructions .ROUTE .MEDSUPPLY #100 ea 01/16/20 Insulin Degludec [Tresiba FlexTouch U-100] 16 unit SUBCUT DAILY 01/29/20 Insulin Lispro [Humalog Kwikpen] 6 unit SUBCUT BREAKFAST 01/29/20 ondansetron 4 mg disintegrating tablet 4 mg PO Q4H PRN #60 tab 02/01/20 oxycodone-acetaminophen 5 mg-325 mg tablet 1 tab PO Q4H PRN #20 tab 02/01/20 naproxen 500 mg tablet 500 mg PO BID PRN #60 tab 02/07/20 Insulin Lispro [Humalog KwikPen] 6 unit SQ LUNCH 02/09/20 Insulin Lispro [Humalog KwikPen] 9 unit SQ DINNER 02/09/20 oxycodone-acetaminophen 5 mg-325 mg tablet 1 tab PO Q4H PRN #20 tab 02/09/20 Smoking Status: Never smoker Alcohol: None Number of Fetus(es): 1 NST - FHR Rate Baby A Baseline: 140 Variability:: Moderate Accelerations:: 15 x 15 Decelerations:: None NST Reactive:: Yes FHR Category:: Category I Uterine Activity:: No regular History Past Pregnancies: Past Pregnancies Delivery Date Name GA/ Weeks Outcome Route Wt Infant Sex Labor Length Anesthesia Delivery Location Provider FOB Labs: Mom's Current Diagnoses Gestational diabetes mellitus in , insulin controlled 02/09/20 Mom's Microbiology 02/09/20 21:30 Urine, Clean Catch Urine Culture - Pending Mom's Labs & Results 02/09/20 02/09/20 02/09/20 19:50 19:50 19:50 WBC 9.9 RBC 4.56 Hgb 13.2 Hct 39.8 MCV 87.3 MCH 28.9 MCHC 33.2 RDW Std Deviation 41.3 RDW Coeff of [place] 13.2 Plt Count 247 MPV 10.8 Sodium 137 Potassium 4.0 Chloride 106 Carbon Dioxide 23.0 Anion Gap 8 BUN 15 Creatinine 0.59 Estim Creat Clear Calc 111.27 Est GFR (MDRD) Af Amer 154 Est GFR (MDRD) Non-Af 127 BUN/Creatinine Ratio 25.3 H Glucose 91 Calcium 9.3 Total Bilirubin 0.30 AST 14 L ALT 22 Alkaline Phosphatase 143 H Total Protein 7.1 Albumin 2.8 L Globulin 4.3 H Albumin/Globulin Ratio 0.7 L Blood Type B POSITIVE Antibody Screen NEGATIVE Social History Smoking Status Never smoker Expected Infant Delivery Method: Spontaneous Vaginal Review of Systems Constitutional: Denies: Fever, Malaise Eyes: Denies: Blurred vision, Vision Change HEENT: Denies: Head Aches, Visual Changes Cardiovascular: Denies: Chest Pain, Palpitations Respiratory: Denies: Cough, Shortness of Breath, Wheezing Gastrointestinal: Denies: Abdominal Pain, Diarrhea, Nausea, Vomiting Genitourinary: Denies: Dysuria, Hematuria Musculoskeletal: Reports: Back Pain. Denies: Joint Pain, Muscle pain Skin: Denies: Lesions, Rash Neurological: Denies: Blurred vision, Focal weakness, Headaches Psychiatric: Denies: Anxiety, Depression Endocrine: Denies: Heat/ Cold Intolerance Hematologic/ Lymphatic: Denies: Easy Bruising, Easy Bleeding Physical Exam Vitals: Vital Signs Temp Pulse BP Pulse Ox 96.8 F L 92 107/67 97 02/10/20 05:41 02/10/20 05:41 02/10/20 05:41 02/10/20 05:41 General: Alert, Cooperative, No apparent distress HEENT: Atraumatic, Normocephalic. Negative for: Thyromegaly, Lymphadenopathy Cardiovascular: Regular rate Lungs: Normal air movement Abdomen: Soft, Non Tender, Gravid Neurological: Deep Tendon Reflexes 2+/4 and Symmetrical, Neuro grossly intact. 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 Negative for: Vulvar lesions Estimated gestational size: Appropriate for gestational size Presentation: Cephalic Assessment/Plan All Active Problems (Last Reviewed 02/09/20 @ 09:53 by Ivanna Montoya) Oligohydramnios (Acute) Nephrolithiasis (Acute) Gestational diabetes mellitus (GDM) requiring insulin (Acute) History of pancreatic cancer (Acute) Hepatitis C antibody test positive (Acute) History of delivery (Acute) Obesity affecting (Acute) Supervision of high risk , antepartum (Acute) (Acute) Gestational diabetes (Resolved) contractions (Resolved) Vaginal bleeding during (Resolved) This is a 29 year-old, G 2P1 at 34 weeks gestational age presents with oligohydramnios. Recommend IV fluids and repeat MELY in the morning. Continue diabetic diet and insulin regimen Status post Celestone for prematurity Multi Select Codes - Visit Charges Observation E&M Codin Initial observation care L3
--- NOTE | 2020-02-10 07:18 | PCM.PN.OB ---
Patient Problems: Active and Suspected Problems (Last Reviewed 02/09/20 @ 09:53 by Ivanna Montoya) Oligohydramnios (Acute) Subjective: No vaginal bleeding loss of fluid admits good movement and regular contractions blood sugars well controlled - Physical Exam Vitals/I&O's: Vital Signs Temp Pulse BP Pulse Ox 96.8 F L 92 107/67 97 02/10/20 05:41 02/10/20 05:41 02/10/20 05:41 02/10/20 05:41 Weight: 252 lb 3.341 oz Body Mass Index (BMI) 46.1 Intake and Output for Last 24 Hours 02/08/20 02/09/20 02/10/20 23:59 23:59 23:59 Intake Total 1000 / 1000 990 / 990 Balance 1000 / 1000 990 / 990 General: Alert, Oriented x3 Lungs: Normal air movement Abdomen: Soft, Non Tender, Gravid Laboratory Results 02/09/20 19:50: WBC 9.9, RBC 4.56, Hgb 13.2, Hct 39.8, MCV 87.3, MCH 28.9, MCHC 33.2, RDW Std Deviation 41.3, RDW Coeff of [place] 13.2, Plt Count 247, MPV 10.8 02/09/20 19:50: Sodium 137, Potassium 4.0, Chloride 106, Carbon Dioxide 23.0, Anion Gap 8, BUN 15, Creatinine 0.59, Estim Creat Clear Calc 111.27, Est GFR (MDRD) Af Amer 154, Est GFR (MDRD) Non-Af 127, BUN/Creatinine Ratio 25.3 H, Glucose 91, Calcium 9.3, Total Bilirubin 0.30, AST 14 L, ALT 22, Alkaline Phosphatase 143 H, Total Protein 7.1, Albumin 2.8 L, Globulin 4.3 H, Albumin/Globulin Ratio 0.7 L 02/09/20 19:50: Blood Type B POSITIVE, Antibody Screen NEGATIVE Current Medications Lactated Ringer's () 1,000 mls @ 200 mls/hr IV .Q5H HUYEN Last Admin: 02/10/20 02:11 Dose: 200 mls/hr Documented by: Insulin Human Lispro (Humalog Kwikpen (Bkc)) 6 unit SC 1200 HUYEN Insulin Human Lispro (Humalog Kwikpen (Bkc)) 9 unit SC 1800 HUYEN Insulin Human Lispro (Humalog Kwikpen (Bk)) 6 unit SC 0800 HUYEN Ondansetron HCl (Zofran) 4 mg IV Q8H PRN PRN PRN Reason: NAUSEA Oxycodone HCl (Oxyir) 5 - 10 mg PO Q6H PRN PRN PRN Reason: Pain Score 4-10/10 Medical Necessity - Tobacco Use Smoking Status: Never smoker Assessment/Plan All Active Problems (Last Reviewed 02/09/20 @ 09:53 by Ivanna Montoya) Oligohydramnios (Acute) Nephrolithiasis (Acute) Gestational diabetes mellitus (GDM) requiring insulin (Acute) History of pancreatic cancer (Acute) Hepatitis C antibody test positive (Acute) History of delivery (Acute) Obesity affecting (Acute) Supervision of high risk , antepartum (Acute) (Acute) Gestational diabetes (Resolved) contractions (Resolved) Vaginal bleeding during (Resolved) This is a 29 year-old, G 2P1 at 34 weeks 1 day gestational age presents with oligohydramnios. Status post IV fluids overnight with good clear urine output, repeat MELY 7 cm. Reviewed kick counts and recommend repeat MELY on Wednesday in the office. Continue diabetic diet and insulin regimen Status post Celestone for prematurity Multi Select Codes - Visit Charges Observation E&M Codin Observation care discharge
--- NOTE | 2020-02-10 07:19 | DCINST_ITS ---
- Discharge Diagnoses Current Active Problems: Current Active and Chronic Problems (Last Reviewed 02/09/20 @ 09:53 by Ivanna Montoya) Oligohydramnios (Acute) You will use the following diet at home:: Calorie/Carbohydrate Controlled (specify 1200, 1400, etc) Discharge Activity: Return to Normal Activity May resume sexual activity in: No Restrictions Lifting Restrictions: 30 Call your doctor if your incision/area has: - - Decreased movement, vaginal bleeding, loss of fluid, or regular contractions Allergies/Adverse Reactions: Allergies No Known Allergies Allergy (Verified 02/09/20 20:00) Medications to take at Discharge prenat.vits,kirill,crq-qiee-saofe 1 tab PO DAILY 07/12/19 flash glucose sensor See Rx Instructions .ROUTE .MEDSUPPLY #2 ea 01/12/20 pen needle, diabetic 32 gauge x 5/32 See Rx Instructions .ROUTE .MEDSUPPLY #200 ea 01/12/20 pen needle, diabetic 32 gauge x 5/32 See Rx Instructions .ROUTE .MEDSUPPLY #100 ea 01/16/20 Insulin Degludec [Tresiba FlexTouch U-100] 16 unit SUBCUT DAILY 01/29/20 Insulin Lispro [Humalog Kwikpen] 6 unit SUBCUT BREAKFAST 01/29/20 ondansetron 4 mg disintegrating tablet 4 mg PO Q4H PRN #60 tab 02/01/20 oxycodone-acetaminophen 5 mg-325 mg tablet 1 tab PO Q4H PRN #20 tab 02/01/20 naproxen 500 mg tablet 500 mg PO BID PRN #60 tab 02/07/20 Insulin Lispro [Humalog KwikPen] 6 unit SQ LUNCH 02/09/20 Insulin Lispro [Humalog KwikPen] 9 unit SQ DINNER 02/09/20 oxycodone-acetaminophen 5 mg-325 mg tablet 1 tab PO Q4H PRN #20 tab 02/09/20 Primary Care Physician: Willem Hooker MD [Primary Care Provider] - Test Results: Test results from this visit will be discussed in further detail at your follow- up appointment, if applicable. Please Follow Up With: April Desai MD - wednesday for eileen at 8 am
== END 2020-02-10 07:50 | disposition home or self-care (01) ==
LOC: US 16:15 → WPOUT 17:37 → WP 17:37
PROVIDERS: PCP Internal Medicine; Referring Provider Obstetrics & Gynecology; Visit Provider Obstetrics & Gynecology
DX: O41.03X0 Oligohydramnios, third trimester, not applicable or unspecified (principal); O24.414 Gestational diabetes mellitus in pregnancy, insulin controlled; O98.413 Viral hepatitis complicating pregnancy, third trimester; B19.20 Unspecified viral hepatitis C without hepatic coma; O99.89 Other specified diseases and conditions complicating pregnancy, childbirth and the puerperium; N20.0 Calculus of kidney; O99.213 Obesity complicating pregnancy, third trimester; E66.9 Obesity, unspecified; O99.513 Diseases of the respiratory system complicating pregnancy, third trimester; J45.909 Unspecified asthma, uncomplicated; O99.283 Endocrine, nutritional and metabolic diseases complicating pregnancy, third trimester; E28.2 Polycystic ovarian syndrome; Z3A.34 34 weeks gestation of pregnancy; Z87.442 Personal history of urinary calculi; Z85.07 Personal history of malignant neoplasm of pancreas
CPT/HCPCS: 96360; 96361 ×10; 59025; 59050; 76815; 76816; 80053; 85027; 86850; 86900; 86901; 87086; 87088; 99218; J7120; G0378

== ENCOUNTER → 2020-02-15 09:47 | Outpatient (CLI) | payer OTHER, SELFPAY ==
[2020-02-15 08:57] VITALS: BMI 47.7
[2020-02-15 10:05] VITALS: BP 124/69; PULSE 90; RESP 18; TEMP 36.4; O2SAT 95; BMI 47.7
[2020-02-15] MEDS: 0.9% NaCl Peripheral Flush Adult/Peds IV (10:32)
[2020-02-15] MEDS: Dextrose 5%-Lactated Ringers 1,000 ML 999 ML IV (10:33)
[2020-02-15 10:35] LABS: Hematocrit 39.6 % (37-47); Mean Corp Hgb Conc 32.8 g/dL (32-36); Mean Corpuscular Hgb 28.5 pg (27.0-32.0); Mean Corpuscular Volume 86.8 fL (81-99); Mean Platelet Vol. 10.6 fl (6.2-12.0); Platelet Count 216 K/mm3 (150-450); RBC Distribution Width CV 13.4 % (11.6-14.6); RBC Distribution Width SD 42.3 fl (35.1-43.9); Red Blood Count 4.56 M/mm3 (4.2-5.4); White Blood Count 9.4 K/mm3 (4.4-11.0)
[2020-02-15] MEDS: Ondansetron 4 MG/2 ML Vial IV (10:39)
[2020-02-15] MEDS: HYDROmorphone 1 MG/ML Syringe IV (10:47)
[2020-02-15 10:50] LABS: ALB/GLOB Ratio 0.6 RATIO (0.9-2.4); AST(SGOT) 12 U/L (15-37); Alanine Aminotransfer ALT/SGPT 20 U/L (13-56); Albumin, Serum 2.5 g/dL (3.2-5.0); Alkaline Phosphatase 146 U/L (45-117); Anion Gap 7 (5-15); BUN 11 mg/dL (7-18); BUN/Creat Ratio 21.3 RATIO (10-20); Calcium,Total 8.8 mg/dL (8.5-10.1); Chloride 108 mmol/L (98-107); Creatinine, Serum 0.52 mg/dL (0.55-1.02); EST Glomerular Filtration Rate 149 mL/min (>60); Est Glom Filt Rate - Afr Amer 181 mL/min (>60); Estimated Creatinine Clearance 126.25 ml/min; Globulin 4.1 g/dL (2.2-4.2); Glucose 83 mg/dL (74-106); Lipase 270 U/L (73-393); Potassium 3.9 mmol/L (3.5-5.1); Protein, Total 6.6 g/dL (6.4-8.2); Sodium Level 139 mmol/L (136-145)
[2020-02-15] MEDS: Cefazolin 2 GM in 0.9% Normal Saline 100 ML IV (10:59)
== END ==
PROVIDERS: PCP Internal Medicine; Referring Provider Obstetrics & Gynecology; Visit Provider Obstetrics & Gynecology
DX: E86.0 Dehydration (principal)
CPT/HCPCS: 96361; 96365; 96375 ×2; 80053; 83690; 85027; 87086; 87088; A4216; J2405

== ENCOUNTER 2020-02-16 17:49 | Inpatient (IN) | payer OTHER, SELFPAY ==
[2020-01-17 12:20] VITALS: BMI 47.0
[2020-02-15 10:05] VITALS: BMI 47.7
[2020-02-16] VITALS (13 sets, daily range): BP systolic 111–135; BP diastolic 57–99; PULSE 82–98; RESP 14–19; TEMP 36.5–37.2; O2SAT 97–99; BMI 48.0
--- NOTE | 2020-02-16 16:07 | US_ITS ---
STUDY: OBSTETRICAL ULTRASOUND - BIOPHYSICAL PROFILE REASON FOR EXAM: Female, 29 years old. High-risk LMP: Unknown. PRIOR ULTRASOUND: 02/09/20 TECHNIQUE: Transabdominal ultrasound evaluation was performed. FINDINGS: There is a single intrauterine fetus. The fetus is in a cephalic presentation. There is demonstrated cardiac activity with a heart rate of 136 bpm. There is decreased amniotic fluid consistent with oligohydramnios. The amniotic fluid index (MELY) is 4.0 cm. The placenta is fungal/not low-lying. BIOPHYSICAL PROFILE: Breathing Movements (FBM): 2 Gross Body Movements (GBM): 2 Tone (FT): 2 Amniotic Fluid Volume (AFV): 0 TOTAL SCORE: 6 / 8 US/Biophysical Profile IMPRESSION: Biophysical profile score 6/8 due to low amniotic fluid volume. 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 Electronically Signed: Vineet Flores, at 17:46 EDT Tel , Service support ,
--- NOTE | 2020-02-16 17:34 | PCM.HP.OB ---
- Problem List (1) Oligohydramnios Status: Acute Comment: admitted 02/08 for 5.7. repeat MELY 02/11- 9.3 cm. recommend delivery at 37 weeks. repeat MELY weekly until delivery. (2) Nephrolithiasis Status: Acute Comment: fluids, percocet PRN (3) Gestational diabetes mellitus (GDM) requiring insulin Status: Acute Comment: omnipod, endocrine managing insulin, plan 2x weekly nsts, weekly mely, q4 week growth us. NL US 02/06/20 deliver at 39 (4) History of pancreatic cancer Status: Acute Comment: Age 22-partial removal of pancreas (5) Hepatitis C antibody test positive Status: Acute Comment: check RNA/CMP q trimester. s/p mfm consult. (6) History of delivery Status: Acute Comment: sec AOD 10cm. plan RLTCS and BS w/ SM (7) Obesity affecting Status: Acute Qualifiers: Comment: nl 1 TM glucola, plan 3rd trimester testing, encourage healthy weight gain (8) Supervision of high risk , antepartum Status: Acute Comment: PRR CONI 03/23/20 girl Paulette PC Rosamaria Samson (9) Status: Acute Qualifiers: Comment: low risk NIPT. carrier and ntd screening declined. US normal History Date of Admission: 02/09/20 Final CONI: 03/23/20 Final CONI Source: US <20 weeks Gestational age: 34 Weeks and 6 Days History of this : This is a 29 year-old, G [], P [], at weeks gestational age. 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 Gastrointestinal problem R19.8 Headaches, cluster G44.009 History of kidney stones Z87.442 History of pancreatic cancer Z85.07 Pancreatomegaly K86.89 Polycystic disease, ovaries E28.2 Surgical History: Surgical History (Last Reviewed 02/15/20 @ 08:57 by Ivanna Montoya) H/O lithotripsy Z98.890 History of section Z98.891 History of pancreatectomy Z90.410 DISTAL Allergies No Known Allergies Allergy (Verified 02/15/20 08:57) Home Medications: Home Medications prenat.vits,kirill,eih-nlvm-snmgt 1 tab PO DAILY 07/12/19 flash glucose sensor See Rx Instructions .ROUTE .MEDSUPPLY #2 ea 01/12/20 pen needle, diabetic 32 gauge x See Rx Instructions .ROUTE .MEDSUPPLY #200 ea 01/12/20 pen needle, diabetic 32 gauge x See Rx Instructions .ROUTE .MEDSUPPLY #100 ea 01/16/20 Insulin Degludec [Tresiba FlexTouch U-100] 16 unit SUBCUT DAILY 01/29/20 Insulin Lispro [Humalog Kwikpen] 6 unit SUBCUT BREAKFAST 01/29/20 ondansetron 4 mg disintegrating tablet 4 mg PO Q4H PRN #60 tab 02/01/20 naproxen 500 mg tablet 500 mg PO BID PRN #60 tab 02/07/20 Insulin Lispro [Humalog KwikPen] 6 unit SQ LUNCH 02/09/20 Insulin Lispro [Humalog KwikPen] 9 unit SQ DINNER 02/09/20 oxycodone-acetaminophen 5 mg-325 mg tablet 1 tab PO Q4H PRN #20 tab 02/09/20 cephalexin 500 mg capsule 500 mg PO BID #60 cap 02/15/20 Smoking Status: Never smoker Alcohol: None Number of Fetus(es): 1 NST - FHR Rate Baby A Baseline: 140 Variability:: Moderate Accelerations:: 15 x 15 Decelerations:: None NST Reactive:: Yes FHR Category:: Category I Uterine Activity:: none History Past Pregnancies: Pregancy History 2 Elective abortions Hx Para 1 Spontaneous abortions Hx # Term Pregnancies Ectopic pregnancies Hx # Pregnancies Multiple births # of living children Past Pregnancies Del. Date Name GA/Weeks Outcome Route Bth Weight Gen Labor Lgth Anesthesia Del Locatn Provider FOB 02/16/18 Rosamaria 40 live - full term 7lbs 7oz Female Roosevelt Davies Delivery Date: 02/16/18 On 08/03/19 @ 13:59 Amirah De Leon Kidney stone (surgery to remove), bleeding throughout , subchorianic hemmorhage Labs: Mom's Current Diagnoses Oligohydramnios, unspecified trimester, not applicable or unspecified 02/16/20 Social History Smoking Status Never smoker Expected Infant Delivery Method: Repeat Section Describe any other labor & delivery plans:: Plan for RCD with tubal ligation Review of Systems Constitutional: Denies: Chills, Fever HEENT: Denies: Head Aches Cardiovascular: Denies: Chest Pain, Palpitations Respiratory: Denies: Cough, Shortness of Breath Gastrointestinal: Denies: Abdominal Pain, Nausea, Vomiting Genitourinary: Denies: Dysuria Gynecological: Denies: Vaginal bleeding, Vaginal discharge, Vaginal itching Neurological: Denies: Numbness, Tingling Psychiatric: Denies: Anxiety, Depression Hematologic/ Lymphatic: Denies: Easy Bruising, Easy Bleeding Physical Exam Vitals: Vital Signs Temp Pulse BP Pulse Ox 98.4 F 98 118/77 98 02/16/20 16:57 02/16/20 16:57 02/16/20 16:57 02/16/20 16:57 General: Alert, Oriented x3, Cooperative, No apparent distress, Well developed, Well nourished HEENT: Atraumatic, PERRLA, EOMI, Normocephalic Cardiovascular: Regular rate Lungs: Normal air movement Abdomen: Soft, Non Tender, Non-Distended, Gravid, Appropriate for Gestational Age Neurological: Cranial nerves II-XII grossly intact, Deep Tendon Reflexes 2+/4 and Symmetrical, Neuro grossly intact Estimated gestational size: Appropriate for gestational size Presentation: Cephalic Assessment/Plan All Active Problems (Last Reviewed 02/15/20 @ 08:57 by Ivanna Montoya) Oligohydramnios (Acute) Nephrolithiasis (Acute) Gestational diabetes mellitus (GDM) requiring insulin (Acute) History of pancreatic cancer (Acute) Hepatitis C antibody test positive (Acute) History of delivery (Acute) Obesity affecting (Acute) Supervision of high risk , antepartum (Acute) (Acute) Gestational diabetes (Resolved) contractions (Resolved) Vaginal bleeding during (Resolved) This is a 29 year-old, G [], P [], at weeks gestational age.
--- NOTE | 2020-02-16 17:49 | HP.PCM_ITS ---
- Problem List (1) Oligohydramnios Status: Acute Comment: admitted 02/08 for 5.7. repeat MELY 02/11- 9.3 cm. recommend delivery at 37 weeks. repeat MELY weekly until delivery. (2) Nephrolithiasis Status: Acute Comment: fluids, percocet PRN (3) Gestational diabetes mellitus (GDM) requiring insulin Status: Acute Comment: omnipod, endocrine managing insulin, plan 2x weekly nsts, weekly mely, q4 week growth us. NL US 02/06/20 deliver at 39 (4) History of pancreatic cancer Status: Acute Comment: Age 22-partial removal of pancreas (5) Hepatitis C antibody test positive Status: Acute Comment: check RNA/CMP q trimester. s/p mfm consult. (6) History of delivery Status: Acute Comment: sec AOD 10cm. plan RLTCS and BS w/ SM (7) Obesity affecting Status: Acute Qualifiers: Comment: nl 1 TM glucola, plan 3rd trimester testing, encourage healthy weight gain (8) Supervision of high risk , antepartum Status: Acute Comment: PRR CONI 03/23/20 girl P[facility] PC Rosamaria Samson (9) Status: Acute Qualifiers: Comment: low risk NIPT. carrier and ntd screening declined. US normal History Date of Admission: 02/09/20 Final CONI: 03/23/20 Final CONI Source: US <20 weeks Gestational age: 34 Weeks and 6 Days History of this : This is a 29 year-old, G 2, P1, at 34 weeks gestational age admitted for RCD and BTL. She has a history of gestational diabetes and was receiving testing. She had an ultrasound done last week that showed oligo. US today shows MELY of 4 (decreased from prior) with DVP of 1.7. Discussed patient with Dr. Ortiz from Maternal Medicine who recommended proceeding with delivery. 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 Gastrointestinal problem R19.8 Headaches, cluster G44.009 History of kidney stones Z87.442 History of pancreatic cancer Z85.07 Pancreatomegaly K86.89 Polycystic disease, ovaries E28.2 Surgical History: Surgical History (Last Reviewed 02/15/20 @ 08:57 by Ivanna Montoya) H/O lithotripsy Z98.890 History of section Z98.891 History of pancreatectomy Z90.410 DISTAL Allergies No Known Allergies Allergy (Verified 02/15/20 08:57) Home Medications: Home Medications prenat.vits,kirill,kkw-[id number] 1 tab PO DAILY 07/12/19 flash glucose sensor See Rx Instructions .ROUTE .MEDSUPPLY #2 ea 01/12/20 pen needle, diabetic 32 gauge x 5/32 See Rx Instructions .ROUTE .MEDSUPPLY #200 ea 01/12/20 pen needle, diabetic 32 gauge x 5/32 See Rx Instructions .ROUTE .MEDSUPPLY #100 ea 01/16/20 Insulin Degludec [Tresiba FlexTouch U-100] 16 unit SUBCUT DAILY 01/29/20 Insulin Lispro [Humalog Kwikpen] 6 unit SUBCUT BREAKFAST 01/29/20 ondansetron 4 mg disintegrating tablet 4 mg PO Q4H PRN #60 tab 02/01/20 naproxen 500 mg tablet 500 mg PO BID PRN #60 tab 02/07/20 Insulin Lispro [Humalog KwikPen] 6 unit SQ LUNCH 02/09/20 Insulin Lispro [Humalog KwikPen] 9 unit SQ DINNER 02/09/20 oxycodone-acetaminophen 5 mg-325 mg tablet 1 tab PO Q4H PRN #20 tab 02/09/20 cephalexin 500 mg capsule 500 mg PO BID #60 cap 02/15/20 Smoking Status: Never smoker NST - FHR Rate Baby A Baseline: 140 Variability:: Moderate Accelerations:: 15 x 15 Decelerations:: None NST Reactive:: Yes FHR Category:: Category I Uterine Activity:: none History Past Pregnancies: Pregancy History 2 Elective abortions Hx Para 1 Spontaneous abortions Hx # Term Pregnancies Ectopic pregnancies Hx # Pregnancies Multiple births # of living children Past Pregnancies Del. Date Name GA/Weeks Outcome Route Bth Weight Gen Labor Lgth Anesthesia Del Locatn Provider FOB 02/16/18 Rosamaria 40 live - full term 7lbs 7oz Female Roosevelt Davies Delivery Date: 02/16/18 On 03/05/20 @ 13:59 Amirah De Leon Kidney stone (surgery to remove), bleeding throughout , subchorionic hemorrhage Labs: Mom's Current Diagnoses Oligohydramnios, unspecified trimester, not applicable or unspecified 02/16/20 Social History Smoking Status Never smoker Mom's Current Diagnoses Oligohydramnios, unspecified trimester, not applicable or unspecified 02/16/20 Mom's Labs & Results 02/16/20 02/16/20 02/16/20 17:50 17:50 18:01 WBC 8.3 RBC 4.30 Hgb 12.4 Hct 37.2 MCV 86.5 MCH 28.8 MCHC 33.3 RDW Std Deviation 41.1 RDW Coeff of Paola 13.3 Plt Count 210 MPV 10.7 Immature Gran % (Auto) 0.400 Neut % (Auto) 71.8 H Lymph % (Auto) 19.8 [place] % (Auto) 6.9 Eos % (Auto) 0.7 Baso % (Auto) 0.4 Absolute Neuts (auto) 6.0 Absolute Lymphs (auto) 1.65 Nucleated RBC % 0 POC Glucose 113 H Blood Type B POSITIVE Antibody Screen NEGATIVE Course Did the patient receive Yes care? Labs Blood Type: B RH: POSITIVE RPR/VDRL/Syphilis Nonreactive Rubella status Immune HbSAg Negative Date Done: 08/21/19 Chlamydia Negative Gonorrhea Negative HIV/AIDS Non-Reactive Group B Strep: Not Done Other Lab Procedures/Results/ Hepatitis C antibody test positive. RNA/CMP Comments: checked every trimester: no acute infections during . Current Obstetrical History Gestational Diabetes Yes Incompetent Cervix No Infertility No IUGR No Macrosomia No Hypertension/Pre-eclampsia No Placenta Previa/Abruption No PTL/PROM No Uterine anomaly No Oligohydramnios Yes Polyhydramnios No Multiple gestation No Past Medical History Asthma No Diabetes No Hypertension No Heart disease No Mitral valve prolapse No Neurologic/Seizure disorder/ Yes: cluster GREEN Migraines Kidney disease No Liver disease No Varicosities No Clotting disorders/Hx of DVT No Thyroid Dysfunction No Other medical diseases Yes: Pancreatic cancer dx age 22 yrs, kidney stones, bulging lumbar disc Psychiatric disorders No Major trauma No Abnormal PAP smear No Sleep apnea No Mammogram in the last 2 years No Enter DETAILS of medical polycystic disease: ovaries history Social History Marital Status: Alleged father Samson Cervantes Hx Smoking No Smoking Status Never smoker Substance Use Type Prescribed How long have you used Percocet Rx this month for kidney stones. Pt substances (years)? used 5 tabs total. 02/07/20 last date of percocet. Pt also had Dilaudid 1 mg 02/15/20. Expected Infant Delivery Method: Repeat Section Describe any other labor & delivery plans:: Plan RCD with BTL Review of Systems Constitutional: Denies: Chills, Fever Eyes: Denies: Blurred vision, Vision Change HEENT: Denies: Head Aches Cardiovascular: Reports: Edema. Denies: Chest Pain Respiratory: Denies: Cough Gastrointestinal: Denies: Abdominal Pain, Nausea, Vomiting Genitourinary: Denies: Dysuria Gynecological: Denies: Vaginal bleeding, Vaginal discharge, Vaginal itching Neurological: Denies: Headaches, Numbness, Tingling Psychiatric: Denies: Anxiety, Depression Physical Exam Vitals: Vital Signs Temp Pulse BP Pulse Ox 98.4 F 98 118/77 98 02/16/20 16:57 02/16/20 16:57 02/16/20 16:57 02/16/20 16:57 General: Alert, Oriented x3, Cooperative, No apparent distress, Well developed, Well nourished HEENT: Atraumatic, PERRLA, EOMI, Normocephalic Cardiovascular: Regular rate Lungs: Normal air movement Abdomen: Soft, Non Tender, Non-Distended, Gravid, Appropriate for Gestational Age Neurological: Cranial nerves II-XII grossly intact, Deep Tendon Reflexes 2+/4 and Symmetrical Estimated gestational size: Appropriate for gestational size Presentation: Cephalic Assessment/Plan All Active Problems (Last Reviewed 02/15/20 @ 08:57 by Ivanna Montoya) Oligohydramnios (Acute) Nephrolithiasis (Acute) Gestational diabetes mellitus (GDM) requiring insulin (Acute) History of pancreatic cancer (Acute) Hepatitis C antibody test positive (Acute) History of delivery (Acute) Obesity affecting (Acute) Supervision of high risk , antepartum (Acute) (Acute) Gestational diabetes (Resolved) contractions (Resolved) Vaginal bleeding during (Resolved) This is a 29 year-old, G 2, P 1, at 34 weeks gestational age admitted for repeat section for gestational diabetes and oligohydramnios. - Plan RCD with BTL - Ancef 2g for infection ppx - s/p BMZx2 - cephalic by US today - blood type B+ - rubella immune 1. Oligohydramnios -Patient with oligo on the last few ultrasounds she has had completed. Received a course of betamethasone on 01/28 and 01/29. Patient discussed with maternal- medicine who recommend delivery in the setting of oligo with no 2 x 2 deepest vertical pocket and gestational diabetes on medication. 2. Gestational diabetes - on 16u long acting and log - BGT ordered on admit - last growth 2470g on 02/08
[2020-02-16] MEDS: Lactated Ringers 1,000 ML 999 ML IV ×2 (17:50→20:27)
[2020-02-16 18:06] LABS: Bedside Glucose 113 mg/dL (70-110)
[2020-02-16 18:07] LABS: Absolute Lymphocyte Count 1.65 X10^3/uL (0.83-4.51); Basophil# 0.03 X10^3/uL; Basophil% 0.4 % (0-1); Eosinophil# 0.06 X10^3/uL; Eosinophils% 0.7 % (0-5); Hematocrit 37.2 % (37-47); Hemoglobin 12.4 g/dL (12.0-15.0); Lymphocyte # 1.65 X10^3/ul (4.0); Lymphocyte % 19.8 % (19-41); Mean Corp Hgb Conc 33.3 g/dL (32-36); Mean Corpuscular Hgb 28.8 pg (27.0-32.0); Mean Corpuscular Volume 86.5 fL (81-99); Mean Platelet Vol. 10.7 fl (6.2-12.0); Monocyte# 0.57 X10^3/uL; Monocyte% 6.9 % (0-10); NRBC Flagged by Analyzer 0 % (0-5); Neutrophil # 5.98 X10^3/uL (2.7-7.7); Neutrophil % 71.8 % (47-70); Platelet Count 210 K/mm3 (150-450); RBC Distribution Width CV 13.3 % (11.6-14.6); RBC Distribution Width SD 41.1 fl (35.1-43.9); White Blood Count 8.3 K/mm3 (4.4-11.0)
[2020-02-16] MEDS: Acetaminophen 500 MG Tablet 1000 MG PO (20:27)
[2020-02-16] MEDS: Sodium Citrate/Citric Acid 30 ML UDC PO (21:30)
[2020-02-16] MEDS: Lactated Ringers 1,000 ML 150 ML IV (21:30)
[2020-02-16] MEDS: Cefazolin 2 GM in 0.9% Normal Saline 100 ML IV (21:50)
--- NOTE | 2020-02-16 23:22 | PCM.OPRPT ---
Problem List (1) Oligohydramnios Status: Acute Comment: admitted 02/08 for 5.7. repeat MELY 02/11- 9.3 cm. recommend delivery at 37 weeks. repeat MELY weekly until delivery. (2) Nephrolithiasis Status: Acute Comment: fluids, percocet PRN (3) Gestational diabetes mellitus (GDM) requiring insulin Status: Acute Comment: omnipod, endocrine managing insulin, plan 2x weekly nsts, weekly mely, q4 week growth us. NL US 02/06/20 deliver at 39 (4) History of pancreatic cancer Status: Acute Comment: Age 22-partial removal of pancreas (5) Hepatitis C antibody test positive Status: Acute Comment: check RNA/CMP q trimester. s/p mfm consult. (6) History of delivery Status: Acute Comment: sec AOD 10cm. plan RLTCS and BS w/ SM (7) Obesity affecting Status: Acute Qualifiers: Comment: nl 1 TM glucola, plan 3rd trimester testing, encourage healthy weight gain (8) Supervision of high risk , antepartum Status: Acute Comment: PRR CONI 03/23/20 girl [facility] PC Rosamaria Samson (9) Status: Acute Qualifiers: Comment: low risk NIPT. carrier and ntd screening declined. US normal Delivery Classification: Scheduled Final CONI: 03/23/20 Final CONI Source: US <20 weeks Gestational age: 34 Weeks and 6 Days Type of Anesthesia:: Spinal Special Medications: Ancef 2g Date of Procedure: 02/16/20 Pre-Operative Diagnosis: IUP at 34/6, Oligohydramnios, GDMA2, Hx , desire for permanent sterilization Post-Operative Diagnosis: Live female infant in cephalic presentation Indications for : Repeat Elective , Oligohydramnios Description of Procedure: The patient is a G2, P1 at 34 weeks 6 days presented for repeat . Spinal anesthesia was placed without difficulty. Cruz catheter was placed. The patient was placed in the dorsal supine position with leftward tilt. Patient was prepped and draped in the normal sterile fashion. Pfannenstiel skin incision was made with the scalpel and carried through to the underlying layer of fascia with the scalpel. Fascia was nicked in the midline and the incision extended laterally. The rectus bellies were dissected off superiorly and inferiorly with out complication both sharply and bluntly. The peritoneum was entered digitally. The incision was stretched and a low transverse uterine incision was made with the scalpel. The 's head was delivered atraumatically followed by the anterior and posterior shoulders without complication the rest of the infant delivered. The cord was clamped and cut and the was handed off to awaiting nurse. The placenta was delivered spontaneously immediately following and was noted to be intact and have a three-vessel cord. The uterus was exteriorized cleared of all clots and debris, and the incision was closed in a double layer closure using #1 Monocryl. The ovaries and fallopian tubes were noted to be within normal limits. The fallopian tubes were grasped with [place] clamps bilaterally and elevated. The LigaSure device was then used to sequentially cauterize and transect the tube and mesosalpinx to allow for removal of the entire fallopian tube. Good hemostasis was noted bilaterally. On reinspection of the hysterotomy, a small amount of oozing was noted. Hemostasis was achieved with [id number] suture of 3-0 Monocryl. The uterus was returned to the maternal abdomen and gutters were cleared of all clots and debris. Lebron was placed over the hysterotomy. The peritoneum was closed with 3-0 Monocryl in a running fashion. Gloves were changed prior to fascial closure. Fascia was closed with 0 PDS in a running fashion. Subcutaneous tissue was copiously irrigated and the skin was closed with 3-0 Monocryl in a subcuticular fashion. Mepilex dressing was applied without complication. Patient was taken to recovery in stable condition. It was discussed with the patient that based on the clinical information obtained during this encounter, combined with her history, at this time I would recommend for future deliveries if further pregnancies are desired. Amniotic Membrane Rupture Type: Artificial Amniotic Fluid Description: Clear Placenta Disposition: [facility] Specimen(s) sent to pathology: bilateral tubal segments Drain: Cruz to straight drain Fluids Replaced: 1500 cc Cord Entanglement: None Nuchal Cord Compression: Without compression Cord Vessel Description: 3 Vessels Esitmated Blood Loss (ml): 750 cc Infant Gender: Female Delayed cord clamping: Yes Antibiotic Given: Ancef 2 grams IV x1 Pt instructed on risks of surgery: Bleeding, Anesthesia Risks, Infection, Need for Future C-Sections, Permanency, Failure Rate of 1 to 2%, Injury to surrounding structure(s) including bowel and bladder, Availability of other non-permanent control options Complications: None - Admit VTE Documentation VTE Present on Admission: No VTE Mechan Device Prophylaxis: SCD's VTE Pharm Prophylaxis ordered?: Yes Multi Select Codes - Urinary/Genital Urinary/Genital CPT Codes: 80128 C/S+TL - salpingectomy
[2020-02-16] MEDS: Oxytocin 30 units/NS 500 ml 30 UNITS/500 ML IV.SOLN 167 UNITS IV (23:27)
--- NOTE | 2020-02-16 23:37 | PLAC_PTH ---
PATIENT: LARISSA RODRIGUEZ LOC: [facility] U#:[id number] AGE/SX: 29/F ROOM: WP010 RE02/16/[address]: Dr. Krissy Silveira MD : 1990 BED: 1 DIS: 02/18/2020 SPEC #: [id number] RECD: 02/16/20 23:56 STATUS: AP CHARLESMichelle #: [id number] GIO: 02/16/20 23:[address]: Krissy Silveira DEPT: SURGICAL PATHOLOGY RECD BY: Isac Man ENTERED: 02/19/20 07:06 SP TYPE: PLACENTA OTHR DR: Dr. Willem Hooker MD Tissues: Fallopian tube Procedures: Surgery Specimen Level II HEADER OPERATION: Tubal ligation PRE-OP DIAGNOSIS: Sterilization TISSUE SUBMITTED: Fallopian tubes MICROSCOPIC DIAGNOSIS Bilateral fallopian tubes, salpingectomy: Bilateral fallopian tubes including fimbrial ends, no pathologic diagnosis. SJ:pia 02/20/20 MICROSCOPIC DESCRIPTION Slides are reviewed. GROSS DESCRIPTION Received in fixative is one container labeled with the patient's name and designated bilateral fallopian tubes. The specimen consists of bilateral fallopian tubes including fimbrial ends. One of the fallopian tubes show a stitch which measures 5.5 cm in length and 0.7 cm in diameter and the second fallopian tube measures 5.5 cm in length and up to 0.8 cm in diameter. The fallopian tubes are not identified as right or left. Sections reveal unremarkable cut surfaces. Java Sql [employer] sections are submitted in two cassettes as follows: 1 - fallopian tube with stitch, 2 - second fallopian tube. / NANCI:pia 02/19/20 TC:4 CPT: 40432 x2
[2020-02-17] VITALS (23 sets, daily range): BP systolic 94–125; BP diastolic 59–84; PULSE 77–103; RESP 14–20; TEMP 36.3–37; O2SAT 95–99
--- NOTE | 2020-02-17 01:05 | NURSING ---
ligasure LOT [id number]. Ligasure use by date 09/07/2024.
[2020-02-17 01:36] LABS: Bedside Glucose 96 mg/dL (70-110)
[2020-02-17] MEDS: Lactated Ringers 1,000 ML 100 ML IV ×2 (02:24→11:57)
[2020-02-17] MEDS: Acetaminophen 500 MG Tablet 1000 MG PO ×4 (02:25→20:31)
[2020-02-17] MEDS: 0.9% Saline Lock 10 ML Syringe IV ×4 (04:33→21:57)
[2020-02-17] MEDS: Ketorolac 30 MG/ML Syringe IV ×4 (04:33→21:57)
[2020-02-17 04:46] LABS: Bedside Glucose 91 mg/dL (70-110)
[2020-02-17 04:47] LABS: Hematocrit 34.6 % (37-47); Hemoglobin 11.3 g/dL (12.0-15.0); Mean Corp Hgb Conc 32.7 g/dL (32-36); Mean Corpuscular Hgb 28.7 pg (27.0-32.0); Mean Corpuscular Volume 87.8 fL (81-99); Mean Platelet Vol. 10.3 fl (6.2-12.0); Platelet Count 174 K/mm3 (150-450); RBC Distribution Width CV 13.2 % (11.6-14.6); RBC Distribution Width SD 42.4 fl (35.1-43.9); Red Blood Count 3.94 M/mm3 (4.2-5.4); White Blood Count 11.3 K/mm3 (4.4-11.0)
[2020-02-17] MEDS: Enoxaparin 40 MG/0.4 ML Syringe SC ×2 (09:54→21:57)
[2020-02-17] MEDS: Senna/Docusate Sodium 1 Tablet PO (09:55)
--- NOTE | 2020-02-17 10:42 | PCM.PN.OB ---
Subjective: Patient doing well without complaints. Tolerating PO. Pain well controlled with NSAIDs and tylenol. Ambulating and voiding without difficulty. Denies chest pain, shortness of breath, calf pain/swelling, fevers, chills, lightheadedness. - Physical Exam Vitals/I&O's: Vital Signs Temp Pulse Resp BP Pulse Ox 97.7 F L 87 16 104/64 96 02/17/20 09:44 02/17/20 09:44 02/17/20 09:44 02/17/20 09:44 02/17/20 09:44 Oxygen Delivery Method Room Air Weight: 262 lb 9.6 oz Body Mass Index (BMI) 48.0 Intake and Output for Last 24 Hours 02/15/20 02/16/20 02/17/20 23:59 23:59 23:59 Intake Total 1881.25 / 1881.25 542.65 / 542.65 Output Total 100 / 100 100 / 100 Balance 1781.25 / 1781.25 442.65 / 442.65 General: Alert, Oriented x3, Cooperative, No apparent distress HEENT: Atraumatic, PERRLA, EOMI, Normocephalic Neck: Supple Lungs: Normal air movement Cardiovascular: Regular rate Abdomen: Soft, Non Tender, Non-Distended, - - incision c/d/i with dressing in place Extremities: No Calf Tenderness, Edema - trace Neurological: Cranial nerves II-XII grossly intact, Neuro grossly intact Psych/Mental Status: Normal Affect, Appropriate Laboratory Results 02/16/20 17:50: WBC 8.3, RBC 4.30, Hgb 12.4, Hct 37.2, MCV 86.5, MCH 28.8, MCHC 33.3, RDW Std Deviation 41.1, RDW Coeff of Paola 13.3, Plt Count 210, MPV 10.7, Immature Gran % (Auto) 0.400, Neut % (Auto) 71.8 H, Lymph % (Auto) 19.8, [place] % (Auto) 6.9, Eos % (Auto) 0.7, Baso % (Auto) 0.4, Absolute Neuts (auto) 6.0, Absolute Lymphs (auto) 1.65, Nucleated RBC % 0 02/16/20 17:50: Blood Type B POSITIVE, Antibody Screen NEGATIVE 02/16/20 18:01: POC Glucose 113 H 02/17/20 01:09: POC Glucose 96 02/17/20 04:38: POC Glucose 91 02/17/20 04:40: WBC 11.3 H, RBC 3.94 L, Hgb 11.3 L, Hct 34.6 L, MCV 87.8, MCH 28.7, MCHC 32.7, RDW Std Deviation 42.4, RDW Coeff of Paola 13.2, Plt Count 174, MPV 10.3 Current Medications Acetaminophen (Tylenol) 1,000 mg PO Q6H [facility] Last Admin: 02/17/20 08:27 Dose: 1,000 mg Documented by: Bisacodyl (Dulcolax) 10 mg RECTAL UD PRN PRN Reason: If no BM Dextrose (D50w Syringe) 0 gm IV X1 PRN; Protocol PRN Reason: Hypoglycemia Diphenhydramine HCl (Benadryl) 25 mg PO Q6H PRN PRN PRN Reason: ITCHING Stop: 02/18/20 03:44 Enoxaparin Sodium (Lovenox) 40 mg SC BID [facility] Last Admin: 02/17/20 09:54 Dose: 40 mg Documented by: Glucagon () 1 mg IM .X1 PRN PRN Reason: Hypoglycemia Hydrocortisone (Hytone) 1 applic TOPICAL TID PRN PRN; Protocol PRN Reason: Discomfort Lactated Ringer's () 1,000 mls @ 100 mls/hr IV .Q10H [facility] Last Admin: 02/17/20 02:24 Dose: 100 mls/hr Documented by: Naloxone HCl 4 mg/ Dextrose 504 mls @ 0 mls/hr IV .Q0M PRN; Protocol PRN Reason: Respiratory depression Naloxone HCl 4 mg/ Dextrose 504 mls @ 0 mls/hr IV .Q0M PRN; Protocol PRN Reason: To maintain Resp. rate >10 Ketorolac Tromethamine (Toradol (Bkc)) 30 mg IV Q6H [facility] Stop: 02/17/20 22:01 Last Admin: 02/17/20 04:33 Dose: 30 mg Documented by: Methylergonovine Maleate (Methergine) 0.2 mg IM X1 PRN PRN Reason: Uterine Atony Nalbuphine HCl (Nubain) 5 mg IV Q3H PRN PRN PRN Reason: ITCHING Stop: 02/18/20 03:44 Naloxone HCl (Narcan) 0.02 mg IV Q1M PRN PRN Reason: RR <10 and pt unresponsive Naloxone HCl (Narcan) 0.02 mg IV Q1M PRN PRN Reason: RR< 10 AND PT UNRESPONSIVE Naproxen (Naprosyn) 500 mg PO Q8H HUYEN Ondansetron HCl (Zofran) 4 mg IV Q4H PRN PRN PRN Reason: Nausea Oxycodone HCl (Oxyir) 5 - 10 mg PO Q4H PRN PRN PRN Reason: Pain Score 4-10/10 Prochlorperazine Edisylate (Compazine Iv) 10 mg IV Q6H PRN PRN PRN Reason: NAUSEA Senna/Docusate Sodium (Senokot-S, Jasmin-Colace) 1 - 2 tablet PO DAILY HUYEN Last Admin: 02/17/20 09:55 Dose: 1 tablet Documented by: Simethicone (Mylicon) 80 mg PO PCHS PRN PRN Reason: Indigestion/stomach pain Sodium Chloride () 5 - 15 ml IV UD PRN PRN Reason: SALINE FLUSH Last Admin: 02/17/20 04:33 Dose: 10 ml Documented by: Medical Necessity - Tobacco Use Smoking Status: Never smoker Assessment/Plan All Active Problems (Last Reviewed 02/15/20 @ 08:57 by Ivanna Montoya) Oligohydramnios (Acute) Nephrolithiasis (Acute) Gestational diabetes mellitus (GDM) requiring insulin (Acute) History of pancreatic cancer (Acute) Hepatitis C antibody test positive (Acute) History of delivery (Acute) Obesity affecting (Acute) Supervision of high risk , antepartum (Acute) (Acute) Gestational diabetes (Resolved) contractions (Resolved) Vaginal bleeding during (Resolved) s/p LTCS PPD #1 1. routine post care 2. bottle feeding - baby at [facility] 3. rh positive 4. rubella immune
--- NOTE | 2020-02-17 10:44 | DCINST_ITS ---
Discharge Diet: No Restrictions Discharge Activity: May Not Drive - for 2 weeks or while taking narcotic pain meds., May Shower, May Take a Tub Bath - in 7 days. May resume sexual activity in: 4-6 weeks Lifting Restrictions: 20 pounds Additional Activity Instructions:: Nothing in the vagina for 4-6 weeks. You may return to work/school in 6 weeks. Call your doctor if your incision/area has: Continuous Slow Oozing, Sudden Increased Bleeding, Increased Pain/ Swelling, Increased Redness, Foul Smelling Discharge Call your doctor if you observe: Fever of 101 or Higher Suture Line Care: Avoid Pulling/Pushing, Avoid Pinching/Bending Remove Dressing in (days):: 7 Additional Instructions: If you experience any of the following, contact your healthcare provider. * Bleeding that soaks a pad every hour for 2 hours * Fever 100.4 or higher * Unrelieved incision or abdominal pain * Swelling, redness, discharge or bleeding from your incision or episiotomy site * Your incision begins to separate * Problems urinating (including inability to urinate or burning while urinating). * Visual changes * Severe headache * Flu-like symptoms * Pain or redness in one of both of your breasts * Pain, warmth, tenderness or swelling in your legs, especially the calf area * Frequent nausea and vomiting * Symptoms of depression or anxiety If you experience any of the following, call 911 or go to the nearest Emergency Room. * Chest pain * Problems breathing * Seizure activity * Partial or complete paralysis of a body part, slurred speech, weakness or drooping of the face, or a sudden inability to walk or hold your balance Allergies/Adverse Reactions: Allergies No Known Allergies Allergy (Verified 02/15/20 08:57) Medications to take at Discharge prenat.vits,kirill,mkk-[id number]-hsimc 1 tab PO DAILY 07/12/19 flash glucose sensor See Rx Instructions .ROUTE .MEDSUPPLY #2 ea 01/12/20 pen needle, diabetic 32 gauge x See Rx Instructions .ROUTE .MEDSUPPLY #200 ea 01/12/20 pen needle, diabetic 32 gauge x / See Rx Instructions .ROUTE .MEDSUPPLY #100 ea 01/16/20 Insulin Degludec [Tresiba FlexTouch U-100] 16 unit SUBCUT DAILY 01/29/20 Insulin Lispro [Humalog Kwikpen] 6 unit SUBCUT BREAKFAST 01/29/20 ondansetron 4 mg disintegrating tablet 4 mg PO Q4H PRN #60 tab 02/01/20 naproxen 500 mg tablet 500 mg PO BID PRN #60 tab 02/07/20 Insulin Lispro [Humalog KwikPen] 6 unit SQ LUNCH 02/09/20 Insulin Lispro [Humalog KwikPen] 9 unit SQ DINNER 02/09/20 oxycodone-acetaminophen 5 mg-325 mg tablet 1 tab PO Q4H PRN #20 tab 02/09/20 cephalexin 500 mg capsule 500 mg PO BID #60 cap 02/15/20 Follow-Up: Call to make an appointment with your doctor for an incision check in 1-2 weeks. You will also need a 6 week post- follow up appointment. Test results from this visit will be discussed in further detail at your follow- up appointment, if applicable. Primary Care Physician: Willem Hooker MD [Primary Care Provider] -
[2020-02-18] MEDS: Acetaminophen 500 MG Tablet 1000 MG PO (02:26)
--- NOTE | 2020-02-18 04:00 | PCM.PN.OB ---
Subjective: Patient doing well without complaints. Tolerating PO. Ambulating and voiding without difficulty. Baby at [facility]. Passing gas. Pain controlled with NSAIDs and tylenol. Denies chest pain, shortness of breath, calf pain/swelling, fevers, chills, lightheadedness. - Physical Exam Vitals/I&O's: Vital Signs Temp Pulse Resp BP Pulse Ox 97.3 F L 93 14 118/84 H 98 02/17/20 20:30 02/17/20 22:24 02/17/20 22:24 02/17/20 20:30 02/17/20 22:24 Oxygen Delivery Method Room Air Weight: 262 lb 9.6 oz Body Mass Index (BMI) 48.0 Intake and Output for Last 24 Hours 02/16/20 02/17/20 02/18/20 23:59 23:59 23:59 Intake Total 1881.25 / 1881.25 2172.64 / 2172.64 Output Total 100 / 100 900 / 900 Balance 1781.25 / 1781.25 1272.64 / 1272.64 General: Alert, Oriented x3, Cooperative, No apparent distress, Well developed, Well nourished HEENT: Atraumatic, PERRLA, EOMI, Normocephalic Oral: Moist Mucosa Neck: Supple Lungs: Normal air movement Cardiovascular: Regular rate Abdomen: Soft, Non Tender, Non-Distended, Passing Flatus, - - incision c/d/i with dressing in place Extremities: No Calf Tenderness, Edema - trace Skin: No rashes, No breakdown Neurological: Cranial nerves II-XII grossly intact, Neuro grossly intact Psych/Mental Status: Normal Affect, Appropriate Laboratory Results 02/17/20 04:38: POC Glucose 91 02/17/20 04:40: WBC 11.3 H, RBC 3.94 L, Hgb 11.3 L, Hct 34.6 L, MCV 87.8, MCH 28.7, MCHC 32.7, RDW Std Deviation 42.4, RDW Coeff of Paola 13.2, Plt Count 174, MPV 10.3 Current Medications Acetaminophen (Tylenol) 1,000 mg PO Q6H HUYEN Last Admin: 02/18/20 02:26 Dose: 1,000 mg Documented by: Bisacodyl (Dulcolax) 10 mg RECTAL UD PRN PRN Reason: If no BM Dextrose (D50w Syringe) 0 gm IV X1 PRN; Protocol PRN Reason: Hypoglycemia Enoxaparin Sodium (Lovenox) 40 mg SC BID [facility] Last Admin: 02/17/20 21:57 Dose: 40 mg Documented by: Glucagon () 1 mg IM .X1 PRN PRN Reason: Hypoglycemia Hydrocortisone (Hytone) 1 applic TOPICAL TID PRN PRN; Protocol PRN Reason: Discomfort Naloxone HCl 4 mg/ Dextrose 504 mls @ 0 mls/hr IV .Q0M PRN; Protocol PRN Reason: Respiratory depression Naloxone HCl 4 mg/ Dextrose 504 mls @ 0 mls/hr IV .Q0M PRN; Protocol PRN Reason: To maintain Resp. rate >10 Methylergonovine Maleate (Methergine) 0.2 mg IM X1 PRN PRN Reason: Uterine Atony Naloxone HCl (Narcan) 0.02 mg IV Q1M PRN PRN Reason: RR <10 and pt unresponsive Naloxone HCl (Narcan) 0.02 mg IV Q1M PRN PRN Reason: RR< 10 AND PT UNRESPONSIVE Naproxen (Naprosyn) 500 mg PO Q8H [facility] Ondansetron HCl (Zofran) 4 mg IV Q4H PRN PRN PRN Reason: Nausea Oxycodone HCl (Oxyir) 5 - 10 mg PO Q4H PRN PRN PRN Reason: Pain Score 4-10/10 Prochlorperazine Edisylate (Compazine Iv) 10 mg IV Q6H PRN PRN PRN Reason: NAUSEA Senna/Docusate Sodium (Senokot-S, Jasmin-Colace) 1 - 2 tablet PO DAILY [facility] Last Admin: 02/17/20 09:55 Dose: 1 tablet Documented by: Simethicone (Mylicon) 80 mg PO PCHS PRN PRN Reason: Indigestion/stomach pain Sodium Chloride () 5 - 15 ml IV UD PRN PRN Reason: SALINE FLUSH Last Admin: 02/17/20 21:57 Dose: 10 ml Documented by: Medical Necessity - Tobacco Use Smoking Status: Never smoker Assessment/Plan All Active Problems (Last Reviewed 02/15/20 @ 08:57 by Ivanna Montoya) Oligohydramnios (Acute) Nephrolithiasis (Acute) Gestational diabetes mellitus (GDM) requiring insulin (Acute) History of pancreatic cancer (Acute) Hepatitis C antibody test positive (Acute) History of delivery (Acute) Obesity affecting (Acute) Supervision of high risk , antepartum (Acute) (Acute) Gestational diabetes (Resolved) contractions (Resolved) Vaginal bleeding during (Resolved) s/p LTCS PPD #2 1. routine post care 2. bottle feeding - baby at [facility] 3. Gestational diabetes - PPD#1 BGT normal 4. rh positive 5. rubella immune
[2020-02-18] MEDS: Naproxen 250 MG Tablet 500 MG PO (04:11)
[2020-02-18 07:00] VITALS: BP 123/78; PULSE 95; RESP 16; TEMP 36.6; O2SAT 98
[2020-02-20 14:08] LABS: Pathology Specimen OB SEE PATHOLOGY REPORT
--- NOTE | 2020-02-21 20:32 | DS.PCM_ITS ---
Discharge Summary Date of Admission: 02/16/20 Date of Discharge: 02/18/20 Summary: 29-year-old G2, P1 at 34 weeks gestation who was admitted for repeat section with bilateral tubal ligation. She was found to have worsening oligohydramnios in the setting of gestational diabetes. She underwent a repeat section on 02/15. Postoperative course was uncomplicated. blood sugars had returned to the normal range. She was discharged home in stable condition on 02/17. Discharge to home Wound care: keep dressing clean, dry, intact. Remove in 7 days Follow-up: [facility] in 7 days Diagnosis: delivery, oligohydramnios, gestational diabetes Current Home Med List Medication Instructions Recorded Confirmed Type ondansetron 4 mg disintegrating 4 mg PO Q4H PRN #60 tab 02/01/20 02/15/20 Rx tablet naproxen 500 mg tablet 500 mg PO BID PRN #60 tab 02/07/20 02/15/20 Rx Ibuprofen [Motrin] 600 mg PO Q6H PRN PRN #30 tab 02/17/20 Rx - Physical Exam Vitals/I&O's: Vital Signs Temp Pulse Resp BP Pulse Ox 97.9 F 95 16 123/78 H 98 02/18/20 07:00 02/18/20 07:00 02/18/20 07:00 02/18/20 07:00 02/18/20 07:00 Oxygen Delivery Method Room Air Weight: 262 lb 9.6 oz Body Mass Index (BMI) 48.0
--- NOTE | 2020-02-26 13:55 | OB.TRI.PN_ITS ---
Progress Notes Date of Service: 02/16/20 Progress Note: Patient admitted to labor and delivery out of triage. Please see H&P for details. Laboratory Studies: Laboratory Tests 02/17/20 02/17/20 02/17/20 Range/Units 04:40 04:38 01:09 WBC 11.3 H (4.4-11.0) K/mm3 RBC 3.94 L (4.2-5.4) M/mm3 Hgb 11.3 L (12.0-15.0) g/dL Hct 34.6 L (37-47) % MCV 87.8 (81-99) fL MCH 28.7 (27.0-32.0) pg MCHC 32.7 (32-36) g/dL RDW Std Deviation 42.4 (35.1-43.9) fl RDW Coeff of Paola 13.2 (11.6-14.6) % Plt Count 174 (150-450) K/mm3 MPV 10.3 (6.2-12.0) fl Immature Gran % (Auto) (0.0-0.9) % Neut % (Auto) (47-70) % Lymph % (Auto) (19-41) % [place] % (Auto) (0-10) % Eos % (Auto) (0-5) % Baso % (Auto) (0-1) % Absolute Neuts (auto) (2.0-7.7) X10^3/uL Absolute Lymphs (auto) (0.83-4.51) X10^3/uL Nucleated RBC % (0-5) % POC Glucose 91 96 (70-110) mg/dL Blood Type Antibody Screen 02/16/20 02/16/20 02/16/20 Range/Units 18:01 17:50 17:50 WBC 8.3 (4.4-11.0) K/mm3 RBC 4.30 (4.2-5.4) M/mm3 Hgb 12.4 (12.0-15.0) g/dL Hct 37.2 (37-47) % MCV 86.5 (81-99) fL MCH 28.8 (27.0-32.0) pg MCHC 33.3 (32-36) g/dL RDW Std Deviation 41.1 (35.1-43.9) fl RDW Coeff of [place] 13.3 (11.6-14.6) % Plt Count 210 (150-450) K/mm3 MPV 10.7 (6.2-12.0) fl Immature Gran % (Auto) 0.400 (0.0-0.9) % Neut % (Auto) 71.8 H (47-70) % Lymph % (Auto) 19.8 (19-41) % [place] % (Auto) 6.9 (0-10) % Eos % (Auto) 0.7 (0-5) % Baso % (Auto) 0.4 (0-1) % Absolute Neuts (auto) 6.0 (2.0-7.7) X10^3/uL Absolute Lymphs (auto) 1.65 (0.83-4.51) X10^3/uL Nucleated RBC % 0 (0-5) % POC Glucose 113 H (70-110) mg/dL Blood Type B POSITIVE Antibody Screen NEGATIVE - Problem List (1) Oligohydramnios Status: Acute Comment: admitted 02/08 for 5.7. repeat MELY 02/11- 9.3 cm. recommend delivery at 37 weeks. repeat MELY weekly until delivery. (2) Nephrolithiasis Status: Acute Comment: fluids, percocet PRN (3) Gestational diabetes mellitus (GDM) requiring insulin Status: Acute Comment: omnipod, endocrine managing insulin, plan 2x weekly nsts, weekly mely, q4 week growth us. NL US 02/06/20 deliver at 39 (4) History of pancreatic cancer Status: Acute Comment: Age 22-partial removal of pancreas (5) Hepatitis C antibody test positive Status: Acute Comment: check RNA/CMP q trimester. s/p mfm consult. (6) History of delivery Status: Acute Comment: sec AOD 10cm. plan RLTCS and BS w/ SM (7) Obesity affecting Status: Acute Qualifiers: Comment: nl 1 TM glucola, plan 3rd trimester testing, encourage healthy weight gain (8) Supervision of high risk , antepartum Status: Acute Comment: PRR CONI 03/23/20 girl Paulette PC Rosamaria Samson (9) Status: Acute Qualifiers: Comment: low risk NIPT. carrier and ntd screening declined. US normal
== END 2020-02-18 07:00 | disposition home or self-care (01) | DRG 784 ==
LOC: WP 17:49
PROVIDERS: Admitting Provider Obstetrics & Gynecology; PCP Internal Medicine; Referring Provider Obstetrics & Gynecology; Visit Provider Obstetrics & Gynecology
DX: O34.219 Maternal care for unspecified type scar from previous cesarean delivery (principal); O41.03X0 Oligohydramnios, third trimester, not applicable or unspecified; Z3A.34 34 weeks gestation of pregnancy; Z37.0 Single live birth; O99.214 Obesity complicating childbirth; O24.424 Gestational diabetes mellitus in childbirth, insulin controlled; Z85.07 Personal history of malignant neoplasm of pancreas; J45.909 Unspecified asthma, uncomplicated; O99.52 Diseases of the respiratory system complicating childbirth; Z30.2 Encounter for sterilization
CPT/HCPCS: 59025; 59050; 76818; 82962; 85025; 85027; 86850; 86900; 86901; 88302; 99218; J7120; A4216; G0378; J2405

== ENCOUNTER → 2020-05-22 16:21 | Outpatient (CLI) | payer OTHER, SELFPAY ==
[2020-05-22 15:50] VITALS: BMI 44.9
[2020-05-22 18:14] LABS: Anion Gap 8 (5-15); BUN 12 mg/dL (7-18); BUN/Creat Ratio 15.5 RATIO (10-20); Calcium,Total 8.9 mg/dL (8.5-10.1); Chloride 103 mmol/L (98-107); Creatinine, Serum 0.77 mg/dL (0.55-1.02); EST Glomerular Filtration Rate 93 mL/min (>60); Est Glom Filt Rate - Afr Amer 113 mL/min (>60); Glucose 92 mg/dL (74-106); Potassium 3.6 mmol/L (3.5-5.1); Sodium Level 139 mmol/L (136-145); T4 Free Direct 0.89 ng/dL (0.76-1.46); Thyroid Stim Hormone (TSH) 2.37 uIU/mL (0.358-3.74)
== END ==
PROVIDERS: PCP Internal Medicine; Referring Provider Nurse Practitioner Family; Visit Provider Nurse Practitioner Family
DX: E66.9 Obesity, unspecified (principal)
CPT/HCPCS: 36415; 80048; 84439; 84443

== ENCOUNTER → 2020-08-26 11:18 | Outpatient (CLI) | payer OTHER, SELFPAY ==
[2020-08-26 10:47] VITALS: BMI 40.6
[2020-08-26 12:05] LABS: Absolute Lymphocyte Count 1.68 X10^3/uL (0.83-4.51); Absolute Neutrophil Count 4.6 X10^3/uL (2.0-7.7); Basophil# 0.05 X10^3/uL; Basophil% 0.7 % (0-1); Eosinophil# 0.14 X10^3/uL; Hematocrit 46.8 % (37-47); Hemoglobin 15.4 g/dL (12.0-15.0); Lymphocyte # 1.68 X10^3/ul (4.0); Lymphocyte % 24.5 % (19-41); Mean Corp Hgb Conc 32.9 g/dL (32-36); Mean Corpuscular Hgb 28.7 pg (27.0-32.0); Mean Corpuscular Volume 87.3 fL (81-99); Mean Platelet Vol. 10.7 fl (6.2-12.0); Monocyte# 0.35 X10^3/uL; Monocyte% 5.1 % (0-10); NRBC Flagged by Analyzer 0 % (0-5); Neutrophil # 4.62 X10^3/uL (2.7-7.7); Neutrophil % 67.4 % (47-70); Platelet Count 258 K/mm3 (150-450); RBC Distribution Width CV 12.4 % (11.6-14.6); RBC Distribution Width SD 39.6 fl (35.1-43.9); Red Blood Count 5.36 M/mm3 (4.2-5.4); White Blood Count 6.9 K/mm3 (4.4-11.0)
[2020-08-26 12:46] LABS: ALB/GLOB Ratio 1.1 RATIO (0.9-2.4); AST(SGOT) 15 U/L (15-37); Alanine Aminotransfer ALT/SGPT 31 U/L (13-56); Alkaline Phosphatase 72 U/L (45-117); Anion Gap 5 (5-15); BUN 10 mg/dL (7-18); BUN/Creat Ratio 13.4 RATIO (10-20); Calcium,Total 9.5 mg/dL (8.5-10.1); Chloride 104 mmol/L (98-107); Creatinine, Serum 0.74 mg/dL (0.55-1.02); EST Glomerular Filtration Rate 97 mL/min (>60); Est Glom Filt Rate - Afr Amer 118 mL/min (>60); Globulin 3.5 g/dL (2.2-4.2); Glucose 90 mg/dL (74-106); LDH 200 U/L (84-246); Potassium 3.5 mmol/L (3.5-5.1); Protein, Total 7.5 g/dL (6.4-8.2); Sodium Level 138 mmol/L (136-145)
== END ==
PROVIDERS: PCP Internal Medicine; Visit Provider Internal Medicine
DX: I88.9 Nonspecific lymphadenitis, unspecified (principal)
CPT/HCPCS: 36415; 80053; 83615; 85025

== ENCOUNTER → 2021-01-22 15:01 | Outpatient (CLI) | payer OTHER, SELFPAY ==
[2021-01-22 17:13] LABS: Rheumatoid Factor < 10.0 IU/mL (<15); Uric Acid 6.3 mg/dL (2.6-6.0)
[2021-01-24 13:42] LABS: ANTINUCLEAR ANTIBODIES DIRECT Negative (Negative)
== END ==
PROVIDERS: PCP Internal Medicine; Referring Provider Internal Medicine; Visit Provider Internal Medicine
DX: M19.90 Unspecified osteoarthritis, unspecified site (principal)
CPT/HCPCS: 36415; 84550; 86038; 86140; 86225; 86235; 86431

== ENCOUNTER → 2021-03-25 07:38 | Outpatient (CLI) | payer OTHER, SELFPAY ==
[2021-03-25 08:15] LABS: AST(SGOT) 13 U/L (15-37); Alanine Aminotransfer ALT/SGPT 22 U/L (13-56); Albumin, Serum 3.5 g/dL (3.2-5.0); Alkaline Phosphatase 71 U/L (45-117); Anion Gap 8 (5-15); BUN 10 mg/dL (7-18); Calcium,Total 8.5 mg/dL (8.5-10.1); Chloride 105 mmol/L (98-107); Cholesterol 167 mg/dL (200); Creatinine, Serum 0.72 mg/dL (0.55-1.02); EST Glomerular Filtration Rate 102 mL/min (>60); Est Glom Filt Rate - Afr Amer 123 mL/min (>60); Globulin 3.5 g/dL (2.2-4.2); Glucose 101 mg/dL (74-106); High Density Lipoprotein 52 mg/dL; Potassium 3.9 mmol/L (3.5-5.1); Sodium Level 140 mmol/L (136-145); Triglycerides 88 mg/dL; Very Low Density Lipoprotein 18 mg/dL (5-40)
== END ==
PROVIDERS: PCP Internal Medicine; Referring Provider Obstetrics & Gynecology; Visit Provider Obstetrics & Gynecology
DX: Z13.220 Encounter for screening for lipoid disorders (principal); Z79.899 Other long term (current) drug therapy
CPT/HCPCS: 36415; 80053; 80061

== ENCOUNTER 2021-04-05 13:27 | Emergency (ER) | payer OTHER, SELFPAY ==
[2021-04-05 13:29] VITALS: BP 122/77; PULSE 96; RESP 18; TEMP 36.4; O2SAT 97; BMI 39.9
[2021-04-05 13:34] VITALS: BP 122/77
--- NOTE | 2021-04-05 13:44 | CT_ITS ---
STUDY: CT BRAIN WITHOUT CONTRAST REASON FOR EXAM: Female, 30 years old. paraesthesias RADIATION DOSAGE (If Supplied By Facility): CTDIvol = ( 44.99 ) mGy, DLP = ( 745.49 ) mGycm TECHNIQUE: Transaxial CT imaging of the brain was performed without administration of intravenous contrast material. Individualized dose optimization techniques were used for this CT. COMPARISON: No relevant priors. FINDINGS: Normal size ventricles and extra-axial spaces for the patient''s age. Normal white matter tracts of the cerebral hemispheres. There is no intracranial hemorrhage. There are no findings of an acute ischemic infarction. Normal visualized paranasal sinuses. CT/Brain/Head without Contrast IMPRESSION: Unremarkable unenhanced CT scan of the brain. Electronically Signed: Ray Dudley MD at 14:42 EDT Tel , Service support ,
--- NOTE | 2021-04-05 13:46 | EDS_ITS ---
HPI History of Present Illness Chief Complaint: Numb/Ting Detail of Chief Complaint: Numbness and tingling to hands and forearms Informant: patient Narrative Narrative: Patient presents to the emergency department complaint of numbness and tingling to the hands and forearms that she has had intermittently for the last 3 days. Patient states that she got her Covid booster 3 days ago and since that time she is been having intermittent paresthesias to the hands. Patient today had an episode where she was walking and noted that she had her nose dripping and noted that she was dripping blood from the left side of the nose. Patient then felt lightheaded and dizzy and like she might pass out. She did sit down. There was no syncope. They did check her systolic blood pressure and it was in the 150s. Patient was brought to the ER for evaluation. She still complains of tingling in her left arm and just feeling fatigued and drained. She denies falls or head injuries. She denies recent illness otherwise. Patient denies change in vision or speech. She denies weakness of the extremities. She does have history of anxiety and depression and takes bupropion regularly. Patient also with remote history of pancreatic cancer 8 ye ars ago. Prior similar symptoms: No [facility] Medical History (Updated 04/05/21 @ 15:[address] Opal Jackson, ) Arthritis Asthma Bulging lumbar disc Gastrointestinal problem Headaches, cluster History of gout History of kidney stones History of pancreatic cancer Pain of left great toe Pancreatomegaly Polycystic disease, ovaries Home Medications spironolactone 25 mg tablet 25 mg PO DAILY #30 tab 07/03/20 [Rx Last Taken Unknown] bupropion HCl 300 mg 24 hr tablet, extended release 300 mg PO QAM #30 tab 07/09/20 [Rx Last Taken Unknown] phentermine 3.75 mg-topiramate ER 23 mg capsule,ext.release 24hr mphas 1 cap PO DAILY 14 Days #14 cap 03/28/21 [Rx Last Taken Unknown] Allergy/AdvReac Type Severity Reaction Status Date / Time No Known Allergies Allergy Verified 04/05/21 13:29 Family History Mother Anxiety Depression Skin cancer Brother Anxiety Depression Grandfather Prostate cancer CVA (cerebral vascular accident) Melanoma Grandmother Parkinsons disease Other Cancer Myocardial infarction Surgical History H/O lithotripsy History of section History of pancreatectomy Status post bilateral salpingectomy Social History Smoking Status: Never smoker alcohol intake: never substance use type: does not use caffeine: Yes what type of physical activity do you participate in: none and weight training frequency: 3-4 times per week seatbelt use: always do you feel safe at home: Yes 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 [place] Pulmonary ROS ROS ED Constitutional Constitutional ED: Reports systems reviewed and no addt'l complaints, except as documented; Denies body ache(s), change in weight or chills Eyes Eyes: Denies acute decrease in peripheral vision, change in vision, double vision or loss of vision ENT ENT ED: Reports none; Denies ear pain, lip swelling, loss taste/smell, neck pain, otalgia or sore throat Cardiovascular Cardiovascular: Reports none; Denies abdominal pain, chest pain with activity, leg edema, lightheadedness, palpitations, rapid heart rate or syncope Respiratory/Chest Respiratory/Chest: Reports none; Denies change in mental status, dry cough, dyspnea, hemoptysis, shortness of breath at rest or shortness of breath with exertion Gastrointestinal Gastrointestinal: Reports none; Denies abdominal pain, change in stool character, diarrhea, hematemesis, hematochezia, melena, rectal bleeding or vomiting Genitourinary Genitourinary ED: Reports none; Denies abdominal discomfort, anuria, dysuria, genital pain or polyuria Musculoskeletal Musculoskeletal: Reports none; Denies arthralgias, back pain, difficulty walking, extremity pain, muscle weakness or myalgias Integumentary Reports none; Denies abscess or rash Neurologic Neurologic: Reports none and paresthesias; Denies abnormal gait, confusion, focal weakness, frequent falls, headache(s), loss of vision, numbness, radicular pain, vertigo or weakness Psychiatric Psychiatric: Reports systems reviewed and no addt'l complaints, except as documented and none; Denies behavioral changes, confusion, difficulty concentrating, hallucinations, suicidal ideation, tactile hallucinations or visual hallucinations Endocrine Endocrinology: Denies none, cold intolerance, excessive sweating, fatigue or heat intolerance Hematologic/Lymphatic Hematologic/Lymphatic: Reports none; Denies anemia, easy bleeding or easy bruising Allergic/Immunologic Allergic/Immunologic ED: Denies as per HPI, none, lip swelling, mouth swelling, throat swelling, tongue swelling or hives EXAM Physical Exam Const Vital Signs: 04/05/21 13:29 04/05/21 13:34 04/05/21 14:44 Temperature 97.5 F L Temperature Source Oral Pulse Rate 96 Pulse Rate [Lying] 97 Pulse Rate [Sitting] 83 Pulse Rate [Standing] 91 Respiratory Rate 18 Blood Pressure 122/77 H 122/77 H Blood Pressure [Lying] 105/68 Blood Pressure [Sitting] 127/84 H Blood Pressure [Standing] 115/99 H Blood Pressure Mean 92 92 Blood Pressure Mean [Lying] 80 Blood Pressure Mean [Sitting] 98 Blood Pressure Mean [Standing] 104 Pulse Ox 97 Oxygen Delivery Method Room Air Room Air Positive well nourished and well developed General Appearance ED: well developed and NAD HEENT Reports TM's clear and moist mucous membranes normocephalic and atraumatic; Negative for trauma or tenderness Tympanic Membrane ED: Yes TM's clear Eyes PERRL and EOMs intact bilaterally General Eye ED: Negative for pale conjunctiva or scleral icterus Neck no lymphadenopathy, supple and no JVD General: Negative for tenderness Chest Wall inspection of chest normal and palpation of chest normal Chest: Negative for tenderness Resp normal respiratory effort and clear to auscultation bilaterally Effort and Inspection: Negative for respiratory distress or pain with movement Auscultation: Negative for rhonchi, wheezes or diminished lung sounds Cardio regular rate, regular rhythm, S1 normal heart sound, S2 normal heart sound and no murmurs Peripheral Pulses: pulses 2+ throughout GI normal to inspection, nondistended, normoactive bowel sounds, soft to palpation, non-tender, non-distended and no masses Back/Spine no CVA tenderness and no thoracic nor lumbar tenderness Extremity normal to inspection General Extremety ED: Negative for edema General Extremity: Negative for edema Neuro oriented x3, CN's II-XII intact bilaterally, no sensory deficits noted and gait normal Neuro Narrative: [id number] and heel hauser testing within normal limits, negative Romberg, negative for drift, fundi benign Sensorium / Orientation: awake, alert, oriented to person, oriented to place and oriented to time Motor Exam: strength 5/5 throughout and strength abnormal Psych mental status grossly normal Skin no rashes or lesions noted and no wounds MDM MDM MDM Narrative Medical decision making narrative: Orthostatic vital signs were unremarkable. On arrival patient had an IV line established and she was placed on a station captain. Etiology of her paresthesias unclear and its unclear if related to Covid booster vaccine. Lab Data Attestation: I reviewed the patient's lab results. Labs: Laboratory Results - last 24 hr 04/05/21 04/05/21 04/05/21 13:14 13:52 13:52 WBC 8.9 RBC 5.03 Hgb 14.2 Hct 42.4 MCV 84.3 MCH 28.2 MCHC 33.5 RDW Std Deviation 37.0 RDW Coeff of [place] 12.2 Plt Count 278 MPV 10.1 Immature Gran % (Auto) 0.200 Neut % (Auto) 50.4 Lymph % (Auto) 40.5 [place] % (Auto) 6.5 Eos % (Auto) 1.7 Baso % (Auto) 0.7 Absolute Neuts (auto) 4.5 Absolute Lymphs (auto) 3.61 Nucleated RBC % 0 Sodium 138 Potassium 3.6 Chloride 108 H Carbon Dioxide 24.0 Anion Gap 6 BUN 14 Creatinine 1.18 H Estim Creat Clear Calc 55.14 Est GFR (MDRD) Af Amer 69 Est GFR (MDRD) Non-Af 57 L BUN/Creatinine Ratio 11.9 Glucose 90 Calcium 8.9 Serum , Qual POC Glucose 77 04/05/21 13:52 WBC RBC Hgb Hct MCV MCH MCHC RDW Std Deviation RDW Coeff of Paola Plt Count MPV Immature Gran % (Auto) Neut % (Auto) Lymph % (Auto) [place] % (Auto) Eos % (Auto) Baso % (Auto) Absolute Neuts (auto) Absolute Lymphs (auto) Nucleated RBC % Sodium Potassium Chloride Carbon Dioxide Anion Gap BUN Creatinine Estim Creat Clear Calc Est GFR (MDRD) Af Amer Est GFR (MDRD) Non-Af BUN/Creatinine Ratio Glucose Calcium Serum , Qual NEGATIVE POC Glucose Radiography Diagnostic Testing: Clinical Impression(s) from Imaging Studies Brain CT 04/05/21 13:44 IMPRESSION: Unremarkable unenhanced CT scan of the brain. Electronically Signed: Ray Dudley MD at 14:42 EDT Tel , Service support , Discharge Plan Triage Chief Complaint: Numb/Ting ED Provider: Opal Jackson Dx/Rx/DC Orders Clinical Impression: Acute anterior epistaxis, Near syncope, Paresthesias Instructions: ED Epistaxis (Adult), ED Fainting, Uncertain Cause, ED Paraesthesias Prescriptions: No Action spironolactone 25 mg tablet 25 mg PO DAILY Qty: 30 RF: 12 bupropion HCl 300 mg tablet extended release 24 hr 300 mg PO QAM Qty: 30 RF: 12 Qsymia 3.75-23 mg capsule, ER multiphase 24 hr 1 cap PO DAILY 14 Days Qty: 14 RF: 0 Primary Care Provider: Willem Hooker Referrals: Willem Hooker MD [Primary Care Provider] - 3-5 Days Disposition Disposition: Home, Self Care
[2021-04-05 14:01] LABS: Absolute Lymphocyte Count 3.61 X10^3/uL (0.83-4.51); Absolute Neutrophil Count 4.5 X10^3/uL (2.0-7.7); Basophil# 0.06 X10^3/uL; Basophil% 0.7 % (0-1); Eosinophil# 0.15 X10^3/uL; Eosinophils% 1.7 % (0-5); Hematocrit 42.4 % (37-47); Hemoglobin 14.2 g/dL (12.0-15.0); Lymphocyte # 3.61 X10^3/ul (0.83-4.51); Lymphocyte % 40.5 % (19-41); Mean Corp Hgb Conc 33.5 g/dL (32-36); Mean Corpuscular Hgb 28.2 pg (27.0-32.0); Mean Corpuscular Volume 84.3 fL (81-99); Mean Platelet Vol. 10.1 fl (6.2-12.0); Monocyte# 0.58 X10^3/uL; Monocyte% 6.5 % (0-10); NRBC Flagged by Analyzer 0 % (0-5); Neutrophil % 50.4 % (47-70); Platelet Count 278 K/mm3 (150-450); RBC Distribution Width CV 12.2 % (11.6-14.6); Red Blood Count 5.03 M/mm3 (4.2-5.4); White Blood Count 8.9 K/mm3 (4.4-11.0)
[2021-04-05 14:09] LABS: Internal QC Validated? YES +Cl - CLEAR BKGD; Pregnancy, Serum, hCG Quali. NEGATIVE Negative
[2021-04-05 14:15] LABS: Anion Gap 6 (5-15); BUN 14 mg/dL (7-18); BUN/Creat Ratio 11.9 RATIO (10-20); Calcium,Total 8.9 mg/dL (8.5-10.1); Chloride 108 mmol/L (98-107); Creatinine, Serum 1.18 mg/dL (0.55-1.02); EST Glomerular Filtration Rate 57 mL/min (>60); Est Glom Filt Rate - Afr Amer 69 mL/min (>60); Estimated Creatinine Clearance 55.14 ml/min; Glucose 90 mg/dL (74-106); Potassium 3.6 mmol/L (3.5-5.1); Sodium Level 138 mmol/L (136-145)
[2021-04-05 14:26] LABS: Bedside Glucose 77 mg/dL (70-110)
[2021-04-05 14:44] VITALS: BP 105/68; BP 115/99; BP 127/84; PULSE 83; PULSE 91; PULSE 97
[2021-04-05 15:10] VITALS: BP 126/77; PULSE 62; RESP 15; O2SAT 98
== END 2021-04-05 15:11 | disposition home or self-care (01) ==
PROVIDERS: Emergency Provider Emergency Medicine; PCP Internal Medicine
DX: R04.0 Epistaxis (principal); R55 Syncope and collapse; R20.2 Paresthesia of skin; E28.2 Polycystic ovarian syndrome; F32.A Depression, unspecified; F41.9 Anxiety disorder, unspecified; J45.909 Unspecified asthma, uncomplicated; M19.90 Unspecified osteoarthritis, unspecified site; M10.9 Gout, unspecified; Z85.07 Personal history of malignant neoplasm of pancreas; Z87.442 Personal history of urinary calculi; Z79.899 Other long term (current) drug therapy
CPT/HCPCS: 70450; 80048; 82962; 84703; 85025; 99284; A4216

== ENCOUNTER 2021-06-27 12:45 | Outpatient (RCR) | payer OTHER, SELFPAY | END 2021-06-30 23:59 | LOC: EMPH 12:45 | PROVIDERS: PCP Internal Medicine; Visit Provider Family Medicine Geriatric Medicine | DX: Z03.818 Encounter for observation for suspected exposure to other biological agents ruled out (principal) | CPT/HCPCS: 87426 ==

== ENCOUNTER 2021-07-17 19:21 | Outpatient (RCR) | payer OTHER, SELFPAY | END 2021-07-28 23:59 | LOC: EMPH 19:21 | PROVIDERS: PCP Internal Medicine; Visit Provider Family Medicine Geriatric Medicine | DX: Z03.818 Encounter for observation for suspected exposure to other biological agents ruled out (principal) | CPT/HCPCS: 87426 ==

== ENCOUNTER 2021-08-14 09:10 | Outpatient (CLI) | payer OTHER, SELFPAY ==
[2021-08-14 12:47] LABS: Hepatitis B Surface Antibody Reactive; Rubella IgG Reactive (Nonreactive)
[2021-08-15 21:27] LABS: Mumps Antibody,IgG 16.1 AU/mL (Immune >10.9); V-Zoster IgG (Immunity) 1859 index (Immune >165)
== END 2021-08-14 23:59 | disposition home or self-care (01) ==
PROVIDERS: PCP Internal Medicine; Referring Provider Physician Assistant; Visit Provider Physician Assistant
DX: Z02.0 Encounter for examination for admission to educational institution (principal)
CPT/HCPCS: 36415; 86706; 86735; 86762; 86765; 86787

== ENCOUNTER 2021-10-17 22:28 | Emergency (ER) | payer OTHER, SELFPAY ==
[2021-10-17 22:29] VITALS: BP 121/84; PULSE 96; RESP 15; TEMP 36.2; O2SAT 98; BMI 41.1
--- NOTE | 2021-10-17 23:14 | EDS_ITS ---
HPI History of Present Illness HPI Narrative: Patient presents with left calf pain that began today. Patient states he was playing softball and was running the bases when she felt sharp pain in her left calf. Patient describes her pain as burning. Patient states it is worse with any movement or weightbearing. Patient admits to some weakness with plantar flexion but states this is due to the pain. Patient denies any paresthesias. Patient denies any other injuries. Chief Complaint: Lower Extremity Injury Informant: patient Occured/Mechanism Comment: Patient was running and felt pain in her left calf Onset/Context/Timing Context: Sudden Onset Timing: Continuous Quality of Pain: Burning Location: Left calf Worsened by: Movement, weightbearing Relieved by: Nothing Associated Symptoms Associated Symptoms: Positive for Weakness (Due to pain); Negative for Parasthesia and Loss of Funtion [facility] Medical History Arthritis Asthma Bulging lumbar disc Epistaxis Gastrointestinal problem Headaches, cluster History of gout History of kidney stones History of pancreatic cancer Numbness and tingling of both upper extremities Pain of left great toe Pancreatomegaly Polycystic disease, ovaries Home Medications bupropion HCl 300 mg 24 hr tablet, extended release See Rx Instructions .ROUTE .COMPLEX #90 tab 08/14/21 [Rx Last Taken Unknown] spironolactone 25 mg tablet 25 mg PO DAILY #30 tab 08/14/21 [Rx Last Taken Unknown] hydrocodone-acetaminophen 1 tab PO Q6H PRN PRN 3 Days #10 tablet 10/18/21 [Rx Last Taken Unknown] Allergy/AdvReac Type Severity Reaction Status Date / Time No Known Allergies Allergy Verified 10/17/21 22:30 Family History Mother Anxiety Depression Skin cancer Brother Anxiety Depression Grandfather Prostate cancer CVA (cerebral vascular accident) Melanoma Grandmother Parkinsons disease Other Cancer Myocardial infarction Surgical History H/O lithotripsy History of section History of pancreatectomy Status post bilateral salpingectomy Social History Smoking Status: Never smoker alcohol intake: never substance use type: does not use caffeine: Yes what type of physical activity do you participate in: none and weight training frequency: 3-4 times per week seatbelt use: always do you feel safe at home: Yes 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[place] Pulmonary ROS ROS ED Constitutional Constitutional ED: Denies chills or fever(s) Eyes Eyes: Denies blurry vision or change in vision ENT ENT ED: Denies rhinorrhea or sore throat Cardiovascular Cardiovascular: Denies chest pain or palpitations Respiratory/Chest Respiratory/Chest: Denies cough or dyspnea Gastrointestinal Gastrointestinal: Denies nausea or vomiting Genitourinary Genitourinary ED: Denies dysuria or hematuria Musculoskeletal Musculoskeletal: Denies back pain or neck pain Integumentary Denies abscess or rash Neurologic Neurologic: Denies headache(s) or weakness Allergic/Immunologic Allergic/Immunologic ED: Denies mouth swelling or urticaria EXAM Physical Exam Const Vital Signs: 10/17/21 22:29 Temperature 97.1 F L Temperature Source Temporal Pulse Rate 96 Respiratory Rate 15 Blood Pressure 121/84 H Blood Pressure Mean 96 Pulse Ox 98 Oxygen Delivery Method Room Air Positive well nourished, well developed and obese General Appearance ED: well developed and NAD Nutritional Appearance: obese HEENT normocephalic and atraumatic Neck full ROM Extremity Extremity Narrative: There is tenderness over the left calf. There is some mild edema. There is no ecchymosis. The Achilles tendon is intact. Pedal pulses are equal bilaterally. Sensation was intact to light touch in all digits. Capillary refills less than 2 seconds in all digits. Range of motion of the left ankle was limited in plantarflexion and dorsiflexion secondary to pain. There are no obvious deformities noted. Neuro oriented x3, CN's II-XII intact bilaterally, moves all extremities and no sensory deficits noted Sensorium / Orientation: alert Motor Exam: strength 5/5 throughout MDM MDM MDM Narrative Medical decision making narrative: X-ray of the left tibia and fibula were obtained. There are 3 views. On my interpretation, there is no acute fracture or dislocation. There is no avulsion noted. Radiologist also interpreted the x-rays and agrees. Patient was advised of her findings. Patient was given a prescription for a short course of [place]. Patient was instructed to ice and elevate the left leg. Patient was given crutches. Patient was instructed to weight-bear as tolerated. Patient was instructed to follow-up with her primary care physician in 5 to 7 days. Patient understood and was agreeable with the plan. All questions were answered. Radiography Diagnostic Testing: Clinical Impression(s) from Imaging Studies Tibia/Fibula X-Ray 10/17/21 23:20 IMPRESSION: Negative left tibia and fibula x-rays. Electronically Signed: Gama Oneal MD at 23:53 EDT , Discharge Plan Triage Chief Complaint: Lower Extremity Injury ED Provider: River Gonzáles Dx/Rx/DC Orders Clinical Impression: Strain of left calf muscle Instructions: ED Muscle Strain, Extremity Prescriptions: New hydrocodone-acetaminophen [hydrocodone-acetaminophen] 1 TABLET tablet 1 tab PO Q6H PRN PRN (Reason: Pain) 3 Days Qty: 10 RF: 0 No Action bupropion HCl 300 mg tablet extended release 24 hr See Rx Instructions .ROUTE .COMPLEX Qty: 90 RF: 4 spironolactone 25 mg tablet 25 mg PO DAILY Qty: 30 RF: 0 Stand Alone Forms: ED Work / School Excuse Primary Care Provider: Willem Hooker Referrals: Willem Hooker MD [Primary Care Provider] - 5-7 Days Disposition Disposition: Home, Self Care
--- NOTE | 2021-10-17 23:20 | RAD_ITS ---
EXAM: XR LEFT TIBIA AND FIBULA, 2 VIEWS CLINICAL INDICATION: Injury/Pain TECHNIQUE: Frontal and lateral views of the left tibia and fibula. This report was created using [employer] report generation technology. COMPARISON: None. FINDINGS: BONES/JOINTS: Unremarkable. No acute fracture. No subluxation. Normal alignment. Preservation of the joint space. No sclerotic or destructive changes observed. SOFT TISSUES: Unremarkable. No soft tissue swelling or gas. No radiopaque foreign body. RAD/Tibia & Fibula 2 Views IMPRESSION: Negative left tibia and fibula x-rays. Electronically Signed: Gama Oneal MD at 23:53 EDT ,
[2021-10-18] MEDS: HYDROcodone Bitartrate/Apap 5/325 Tablet PO (00:20)
[2021-10-18 00:21] VITALS: BP 140/90; PULSE 79; RESP 18
== END 2021-10-18 00:22 | disposition home or self-care (01) ==
PROVIDERS: Emergency Provider Emergency Medicine; PCP Internal Medicine; Visit Provider Emergency Medicine
DX: S86.112A Strain of other muscle(s) and tendon(s) of posterior muscle group at lower leg level, left leg, initial encounter (principal); Z68.41 Body mass index [BMI] 40.0-44.9, adult; X58.XXXA Exposure to other specified factors, initial encounter; Y93.64 Activity, baseball; J45.909 Unspecified asthma, uncomplicated; M19.90 Unspecified osteoarthritis, unspecified site; Z87.442 Personal history of urinary calculi; E28.2 Polycystic ovarian syndrome; Z85.07 Personal history of malignant neoplasm of pancreas; E66.9 Obesity, unspecified
CPT/HCPCS: 73590; 99284

== ENCOUNTER → 2021-10-30 | Outpatient (CLI) | payer OTHER, SELFPAY ==
--- NOTE | 2021-10-30 12:48 | VDLE_ITS ---
Reason For Study: Pain Procedure LEFT This is a venous duplex using B-mode, color GSV is normal. flow and spectral Doppler. CFV is compressible, spontaneous, phasic, Exam performed in department. competent, and demonstrates normal A preliminary report was called and/or faxed augmentation. to [facility]. FV is compressible, spontaneous, phasic, competent and demonstrates normal augmentation. POP V is compressible, spontaneous, phasic, competent and demonstrates normal augmentation. T/P Trunk is compressible. PTV is compressible. LT PerV is compressible. VL/Venous Duplex US, Unilateral Interpretation Summary There is no evidence of left lower extremity deep vein thrombosis. Left great s aphenous vein appears patent and compressible segmentally. Ordering Physician: Sarahi Hutchins Referring Physician: Willem Hooker Performed By: Gina Carroll RVT
== END | disposition home or self-care (01) ==
LOC: CVS 12:47
PROVIDERS: PCP Internal Medicine; Referring Provider Physician Assistant; Visit Provider Physician Assistant
DX: M79.662 Pain in left lower leg (principal)
CPT/HCPCS: 93971